=== PATIENT | female | born 1975 | race Caucasian/White ===

== ENCOUNTER 2023-05-13 20:20 | Outpatient (REF) | payer BC, SELFPAY ==
[2023-05-19 12:11] LABS: Age Gdln ACOG Testing Note (.); HPV Aptima Negative (Negative); IGP, Aptima HPV, rfx 16/18,45 Note (.)
== END 2023-05-13 20:21 | disposition home or self-care (01) ==
LOC: LAB 20:20
PROVIDERS: Visit Provider Physician Assistant
DX: Z01.419 Encounter for gynecological examination (general) (routine) without abnormal findings (principal)
CPT/HCPCS: 87624; G0145

== ENCOUNTER 2024-01-07 07:29 | Outpatient (OUT) | payer BC, SELFPAY ==
--- OUTSIDE RECORDS SUMMARY | 2024-01-07 07:35 | XMS_ITS | CCD ---
Author Organization [facility] Care Team Providers Care Office Helper Name Role Phone DEEPTHI ANDRADE Admitting Unavailable DEEPTHI ANDRADE Attending Unavailable DEEPTHI ANDRADE Surgeon Unavailable KISHA, AGUSTÍN Primary Care Unavailable KISHA, AGUSTÍN Referring Unavailable ND Procedure Practitioner Unavailab monique GOODEN, DR HECTOR Baca Admitting Unavailable GIACOMO, DR HECTOR Baca Attending Unavailable AICHHOLZ, FIELD OPERATIONS COORDINATOR CONNIE Primary Care Unavailable GIACOMO, DR HECTOR Baca Consulting Unavailable KRISTINA ., DR MCCOLLUM Admitting Unavailable KRISTINA ., DR MCCOLLUM Attending Unavailable AICHHOLZ, FIELD OPERATIONS COORDINATOR CONNIE Primary Care Unavailable KRISTINA ., DR MCCOLLUM Consulting Unavailable REQUEST, DR HERNANDEZ LISTED Admitting Unavaila ble REQUEST, DR HERNANDEZ LISTED Attending Unavaila ble KISHA, AGUSTÍN R Primary Care Unavailable KRISTINA ., DR MCCOLLUM Admitting Unavailable KRISTINA ., DR MCCOLLUM Attending Unavailable AICHHOLZ, FIELD OPERATIONS COORDINATOR CONNIE Primary Care Unavailable KRISTINA ., DR MCCOLLUM Consulting Unavailable AGUBOSIM, TANIKA Consulting Unavailable SARAH BOOTH Consulting Unavailable BOOTH (ERROR), SARAH Consulting Unavailable KRISTINA ., DR MCCOLLUM Admitting Unavailable KRISTINA ., DR MCCOLLUM Attending Unavailable AICHHOLZ, FIELD OPERATIONS COORDINATOR CONNIE Primary Care Unavailable WEST, DR HECTOR Baca Consulting Unavailable AICHHOLZ, FIELD OPERATIONS COORDINATOR CONNIE Admitting Unavailable AICHHOLZ, FIELD OPERATIONS COORDINATOR CONNIE Attending Unavailable AICHHOLZ, FIELD OPERATIONS COORDINATOR CONNIE Primary Care Unavailable AICHHOLZ, FIELD OPERATIONS COORDINATOR CONNIE Consulting Unavailable SHEREEN, DR BELLO Carson Consulting Unavailable AICHHOLZ, FIELD OPERATIONS COORDINATOR CONNIE Admitting Unavailable AICHHOLZ, FIELD OPERATIONS COORDINATOR CONNIE Attending Unavailable KISHA, AGUSTÍN R Primary Care Unavailable AICHHOLZ, FIELD OPERATIONS COORDINATOR CONNIE Consulting Unavailable Sravanthi Ji Unavailable [phone] SRAVANTHI COLE Attending Unavailable GARTH LEÓN Attending Unavailable SRAVANTHI COLE Attending Unavailable Allergies Allergy Classification Reported Allergen(s) Allergy Type Date of Onset Reaction(s) Facility (1 source) Prochlorperazine Drug Allergy [facility] Repository (3 sources) Prochlorperazine Drug Allergy 3 Rash [facility] Medications Current Medications Medication Drug Class(es) Dates Sig (Normalized) Sig (Original) fluocinonide 0.5 mg/ml topical solution (2 sources) Corticosteroid Start: 07-31-2023 fluocinonide (Lidex) 0.05 % external solution Indications: Rash and other nonspecific skin eruption Apply to affected areas on the scalp, up to twice a day when flared, 30 day supply 20 mL 11 07/31/2023 Active levonorgestrel 0.509971 mg/hr intrauterine system (3 sources) Progestin, Progestin-containin g Intrauterine Device Levonorgestrel (Mirena, 52 MG,) 20 MCG/DAY intrauterine device by Intrauterine route. 0 Active levothyroxine sodium 0.075 mg oral tablet (4 sources) l-Thyroxine Start: 08-04-2023 End: 11-02-2023 take 1 tablet by mouth in the morning levothyroxine (Synthroid, Levoxyl) 75 MCG tablet Indications: Hypothyroidism (CMS/HCC) Take 1 tablet (75 mcg) by mouth in the morning. 90 tablet 0 08/04/2023 11/02/2023 Active take 1 tablet by mouth in the mo rning levothyroxine (Synthroid, Levoxyl) 25 MCG tablet Take 1 tablet by mouth in the morning. 0 Active traZODone hydrochloride 50 mg oral tablet (3 sources) Serotonin Reuptake Inhibitor Start: 05-30-2023 End: 08-28-2023 take 1 tablet by mouth at bedtime traZODone (Desyrel) 50 MG tablet Indications: Insomnia, unspecified , Insomnia Take 1 tablet (50 mg) by mouth at bedtime 90 tablet 1 05/30/2023 08/28/2023 Active Problems Active Problems Problem Classification Problem Date Documented Da te Episodic/Chronic Neoplasms of unspecified nature or uncertain behavior (1 source) Neoplastic disease; Translations: [Neoplasm of unspecified behavior of bone, soft tissue, and skin] 07-31-2023 Episodic Other and unspecified benign neoplasm (1 source) Melanocytic nevus of trunk; Translations: [Melanocytic nevi of trunk] 07-31-2023 Episodic Other and unspecified benign neoplasm (1 source) Skin lesion; Translations: [Hemangioma of skin and subcutaneous tissue] 07-31-2023 Episodic Other skin disorders (1 source) Eruption; Translations: [Rash and other nonspecific skin eruption] 07-31-2023 Episodic Other skin disorders (1 source) Lentiginosis; Translations: [Other melanin hyperpigmentation] 07-31-2023 Episodic Other skin disorders (1 source) Inflamed seborrheic keratosis; Translations: [Inflamed seborrheic keratosis] 07-31-2023 Episodic Thyroid disorders (3 sources) Hypothyroidism; Translations: [Hypothyroidism, unspecified] Onset: 08-04-2023 08-04-2023 Chronic Unclassified (1 source) CONTACT W/AND (SUSP) EXPOS COVID-19; Translations: [CONTACT W/AND (SUSP) EXPOS COVID-19] Onset: 01-15-2022 Past or Other Problems Problem Classification Problem Date Documented Date Episodic/Chronic Abdominal pain (5 sources) Pelvic and perineal pain; Translations: [PELVIC AND PERINEAL PAIN] Onset: 12-11-2021 Episodic Contraceptive and procreative management (4 sources) Encounter for removal and reinsertion of intrauterine contraceptive device; Translations: [ENC REMOVAL REINSERT IU CONTRACEPT] Onset: 01-18-2022 Episodic Other screening for suspected conditions (not mental disorders or infectious disease) (4 sources) Encounter for screening mammogram for malignant neoplasm of breast; Translations: [ENC SCR MAMMO MALIG NEOPLASM BREAST] Onset: 12-13-2021 Episodic Ovarian cyst (1 source) Unspecified ovarian cyst, unspecified side; Translations: [UNSPECIFIED OVARIAN CYST UNSP SIDE] Onset: 01-24-2022 Episodic Residual codes; unclassified (1 source) Insomnia, unspecified; Translations: [INSOMNIA UNSPECIFIED] Onset: 01-24-2022 Episodic Residual codes; unclassified (1 source) Family history of malignant neoplasm of breast; Translations: [FAMILY HX MALIG NEOPLASM OF BREAST] Onset: 12-18-2021 Episodic Residual codes; unclassified (1 source) Family history of malignant neoplasm of other organs or systems; Translations: [FAM HX MALIG NEOPLASM OTH ORGN/SYS] Onset: 12-18-2021 Episodic Results Test Name Value Interpretation Reference Range Facility Cryotherapy, skin lesionon 0 07-31-2023 [facility] Lesion biopsyon 07-31-2023 Type of biopsy: tangential Informed consent: discussed and consent obtained Informed consent comment: The risks and benefits of the biopsy were discussed. Risks include but are not limited to bleeding, infection, scarring, pain, and nerve damage. An opportunity to ask questions prior to the procedure was permitted and all questions were answered. Patient was prepped and draped in usual sterile fashion: area cleansed with alcohol. Anesthesia: the lesion was anesthetized in a standard fashion Anesthetic: 1% lidocaine w/ epinephrine 1-100,000 buffered w/ 8.4% NaHCO3 Instrument used: DermaBlade Hemostasis achieved with: electrodesiccation Outcome: patient tolerated procedure well Outcome comment: The specimen was placed in a prelabeled formalin container to be sent for pathology Post-procedure details: sterile dressing applied and wound care instructions given Post-procedure details comment: Emphasized need to contact clinic for any signs of infection, uncontrollable bleeding, or complications. Dressing type: bandage Additional details: Photo taken Amount of lidocaine used: 0.5 cc [facility] CBC AUTO DIFFon 01-18-2022 BASO # 0.0 103/ul Normal 0.0-0.1 [facility] Comment on above: Performed By: #### C BC #### [facility] [address] [place] [address] Dr. Roney Disla Basophils/100 WBC (Bld) 0.4 % Normal 0.2-2.0 [facility] Comment on above: Performed By: #### C BC #### [facility] [address] [place] [address] Dr. Roney Disla EO # 0.1 103/ul Normal 0.0-0.7 [facility] Comment on above: Performed By: #### C BC #### [facility] [address] [place] [address] Dr. Roney Disla Eosinophils/100 WBC (Bld) 0.8 % Critically low 0.9-7.0 [facility] Comment on above: Performed By: #### C BC #### [facility] [address] [place] [address] Dr. Roney Disla Erythrocyte distribution width (RBC) [Ratio] 12.5 % Normal 11.0-15.0 [facility] Comment on above: Performed By: #### C BC #### [facility] [address] [place] [address] Dr. Roney Disla Hematocrit (Bld) [Volume fraction] 38.9 % Normal 36.0-48.0 [facility] Comment on above: Performed By: #### C BC #### [facility] [address] [place] [address] Dr. Roney Disla Hemoglobin (Bld) [Mass/Vol] 13.1 g/dL Normal 12.0-16.0 [facility] Comment on above: Performed By: #### C BC #### [facility] [address] [place] [address] Dr. Roney Disla IG # 0.02 10e3/ul Normal 0.00-0.03 [facility] Comment on above: Performed By: #### C BC #### [facility] [address] [place] [address] Dr. Roney Disla IG % 0.2 % Normal 0.0-0.5 [facility] Comment on above: Performed By: #### C BC #### [facility] [address] [place] [address] Dr. Roney Disla LYMPH # 2.3 103/ul Normal 1.2-3.8 [facility] Comment on above: Performed By: #### C BC #### [facility] [address] [place] [address] Dr. Roney Disla Lymphocytes/100 WBC (Bld) 27.3 % Normal 20.5-60.0 [facility] Comment on above: Performed By: #### C BC #### [facility] [address] [place] [address] Dr. Roney Disla MANUAL DIFF REQ NO Normal [facility] Comment on above: Performed By: #### C BC #### [facility] [address] [place], [place] [id number] Dr. Roney Disla MCH (RBC) [Entitic mass] 29.5 pg Normal 26.7-34.0 [facility] Comment on above: Performed By: #### C BC #### [facility] [address] [place] [address] Dr. Roney Disla MCHC (RBC) [Mass/Vol] 33.7 g/dL Normal 29.9-35.2 [facility] Comment on above: Performed By: #### C BC #### [facility] [address] [place] [address] Dr. Roney Disla MCV (RBC) [Entitic vol] 87.6 fL Normal 81.0-99.0 [facility] Comment on above: Performed By: #### C BC #### [facility] [address] [place] [address] Dr. Roney Disla MONO # 0.6 103/ul Normal 0.3-0.8 [facility] Comment on above: Performed By: #### C BC #### [facility] [address] [place] [address] Dr. Roney Disla Monocytes/100 WBC (Bld) 6.7 % Normal 1.7-12.0 [facility] Comment on above: Performed By: #### C BC #### [facility] [address] [place] [address] Dr. Roney Disla NEUT # 5.3 103/ul Normal 1.4-6.5 [facility] Comment on above: Performed By: #### C BC #### [facility] [address] [place] [address] Dr. Roney Disla Neutrophils/100 WBC (Bld) 64.6 % Normal 43.0-75.0 [facility] Comment on above: Performed By: #### C BC #### [facility] [address] [place] [address] Dr. Roney Disla Platelet mean volume (Bld) [Entitic vol] 9.5 fL Normal 9.5-13.5 [facility] Comment on above: Performed By: #### C BC #### [facility] [address] [address] [address] Roney Disla PLT 306 103/ul Normal 150-450 [facility] Comment on above: Performed By: #### C BC #### [facility] [address] [address] [address] Roney Disla RBC 4.44 106/ul Normal 4.20-5.40 [facility] Comment on above: Performed By: #### C BC #### [facility] [address] [address] [address] Roney Disla WBC 8.2 103/ul Normal 4.0-11.0 [facility] Comment on above: Performed By: #### C BC #### [facility] [address] [place] [address] Dr. Roney Disla PREG HCG QUALon 01-18-2022 , QUAL Negative Normal NEGATIVE [facility] Comment on above: Performed By: #### P REG #### [facility] [address] [place] [address] Dr. Roney Disla Covid-19 PCR (CVDTB)on 12-22 SARS-CoV-2 (COVID-19) RNA CHAY+probe Ql (Unsp spec) Not detected Normal NOT DETECTED [facility] Comment on above: Result Comment: This test is not yet approved or cleared by the [place] FDA. When there are no FDA-approved or cleared tests available, and other criteria are met, FDA can make tests available under an emergency access mechanism called an Emergency Use Authorization (EUA). The EUA for this test is supported by the [place] of Health and Human Service's (HHS's) declaration that circumstances exist to justify the emergency use of in vitro diagnostics for the detection and/or diagnosis of the virus that causes COVID-19. This EUA will remain in effect (meaning this test can be used) for the duration of the COVID-19 declaration justifying emergency of IVDs, unless it is terminated or revoked by FDA (after which the test may no longer be used). When diagnostic testing is negative, the possibility of a false negative should be considered in the context of a patient's recent exposures and the presence of clinical signs and symptoms consistent with SARS-CoV-2. Performed By: #### C VDTBH #### [facility] [address] [address] [address] Roney Disla MG MAMM SCREEN 3D JORDAN CADon 12-13-2021 MG MAMM SCREEN 3D JORDAN CAD Patient: ROSA ROBB Exam Date: 12/13/2021 : 1975 Gender:F Ordering : MACKENZIE CONNIE ARCEO [facility] Admission #: [id number] Family : Order #: [id number] CLICK HERE TO VIEW EXAM RADIOLOGY REPORT PROCEDURE: MAMMOGRAM SCREENING 3D BILATERAL CAD COMPARISON: MG MAMM SCREEN JORDAN W CAD, 05/28/2018. MG MAMM SCREEN JORDAN W CAD, 05/20/2017. MG MAMM JORDAN SCRN W CAD DIG, 02/24/2015. MG MAMM SCREEN JORDAN W CAD, 05/17/2019. INDICATIONS: Screening for malignant neoplasm of breast Calculator Name NCI Breast Cancer Risk Assessment Tool 5 Year Breast Cancer Risk 1.20% Lifetime Breast Cancer Risk 12.80% Personal Breast Cancer No Personal Ovarian Cancer No Treatments None Family Cancers Aunt-maternal with breast cancer at age 50; Mother with skin cancer at age 65. LOCATION: [facility] BREAST COMPOSITION: Extremely dense, which lowers the sensitivity of mammography. FINDINGS: DIAGNOSTIC CATEGORY 1--NEGATIVE. RIGHT BREAST: No significant suspicious finding. No significant change has occurred. LEFT BREAST: No significant suspicious finding. No significant change has occurred. RECOMMENDATIONS: ROUTINE MAMMOGRAM AND CLINICAL EVALUATION IN 12 MONTHS. PLEASE NOTE: A NORMAL MAMMOGRAM DOES NOT EXCLUDE THE POSSIBILITY OF BREAST CANCER. A CLINICALLY SUSPICIOUS PALPABLE LUMP SHOULD BE BIOPSIED. Dictated by: Bello Roach M.D. on 12/14/2021 at 13:35 Approved by: Bello Roach M.D. on 12/14/2021 at 13:54 Normal [facility] US PELVIS AND TRANSVAGon US PELVIS AND TRANSVAG EXAMINATION: US PELVIS AND TRANSVAG HISTORY: Pelvic and perineal pain COMPARISON: No relevant comparison available. FINDINGS: Transabdominal and transvaginal images The uterus is prominent in size measuring 12.6 x 7.1 x 4.5 cm. No focal myometrial mass. Anteverted. Endometrium measures 6.6 mm. Linear hyperechogenicity within the endometrial cavity with acoustic shadowing consistent with a normally positioned IUD. Fluid is identified within the endocervical canal measuring up to 3.6 mm. The right ovary measures 3.1 x 2.2 x 1.3 cm. Normal color flow. The left ovary measures 3.0 x 2.0 x 2.0 cm. Normal color flow No free fluid. IMPRESSION: Normal position of IUD Electronically authenticated by: HECTOR GOODEN Date: 2021-12-11 16:27 Normal [facility] CBC AUTO DIFFon 11-02-2021 BASO # 0.0 103/ul Normal 0.0-0.1 [facility] Comment on above: Performed By: #### C BC #### [facility] [address] [place] [address] Dr. Roney Disla Basophils/100 WBC (Bld) 0.4 % Normal 0.2-2.0 [facility] Comment on above: Performed By: #### C BC #### [facility] [address] [place] [address] Dr. Roney Dsila EO # 0.1 103/ul Normal 0.0-0.7 [facility] Comment on above: Performed By: #### C BC #### [facility] [address] [place] [address] Dr. Roney Disla Eosinophils/100 WBC (Bld) 1.5 % Normal 0.9-7.0 [facility] Comment on above: Performed By: #### C BC #### [facility] [address] [place] [address] Dr. Roney Disla Erythrocyte distribution width (RBC) [Ratio] 12.4 % Normal 11.0-15.0 [facility] Comment on above: Performed By: #### C BC #### [facility] [address] [place] [address] Dr. Roney Disla Hematocrit (Bld) [Volume fraction] 39.3 % Normal 36.0-48.0 [facility] Comment on above: Performed By: #### C BC #### [facility] [address] [place] [address] Dr. Roney Disla Hemoglobin (Bld) [Mass/Vol] 13.0 g/dL Normal 12.0-16.0 [facility] Comment on above: Performed By: #### C BC #### [facility] [address] [place] [address] Dr. Roney Disla IG # 0.02 10e3/ul Normal 0.00-0.03 [facility] Comment on above: Performed By: #### C BC #### [facility] [address] [place] [address] Dr. Roney Disla IG % 0.2 % Normal 0.0-0.5 [facility] Comment on above: Performed By: #### C BC #### [facility] [address] [place] [address] Dr. Roney Disla LYMPH # 2.5 103/ul Normal 1.2-3.8 [facility] Comment on above: Performed By: #### C BC #### [facility] [address] [place] [address] Dr. Roney Disla Lymphocytes/100 WBC (Bld) 30.9 % Normal 20.5-60.0 [facility] Comment on above: Performed By: #### C BC #### [facility] [address] [place] [address] Dr. Roney Disla MANUAL DIFF REQ NO Normal [facility] Comment on above: Performed By: #### C BC #### [facility] [address] [place] [address] Dr. Roney Disla MCH (RBC) [Entitic mass] 29.1 pg Normal 26.7-34.0 [facility] Comment on above: Performed By: #### C BC #### [facility] [address] [place] [address] Dr. Roney Disla MCHC (RBC) [Mass/Vol] 33.1 g/dL Normal 29.9-35.2 [facility] Comment on above: Performed By: #### C BC #### [facility] [address] [place] [address] Dr. Roney Disla MCV (RBC) [Entitic vol] 88.1 fL Normal 81.0-99.0 [facility] Comment on above: Performed By: #### C BC #### [facility] [address] [address] [address] Roney Disla MONO # 0.6 103/ul Normal 0.3-0.8 [facility] Comment on above: Performed By: #### C BC #### [facility] [address] [address] [address] Roney Disla Monocytes/100 WBC (Bld) 7.0 % Normal 1.7-12.0 [facility] Comment on above: Performed By: #### C BC #### [facility] [address] [address] [address] Roney Disla NEUT # 4.8 103/ul Normal 1.4-6.5 [facility] Comment on above: Performed By: #### C BC #### [facility] [address] [place] [address] Dr. Roney Disla Neutrophils/100 WBC (Bld) 60.0 % Normal 43.0-75.0 [facility] Comment on above: Performed By: #### C BC #### [facility] [address] [place] [address] Dr. Roney Disla Platelet mean volume (Bld) [Entitic vol] 9.8 fL Normal 9.5-13.5 [facility] Comment on above: Performed By: #### C BC #### [facility] [address] [place] [address] Dr. Roney Disla PLT 299 103/ul Normal 150-450 [facility] Comment on above: Performed By: #### C BC #### [facility] [address] [place] [address] Dr. Roney Disla RBC 4.46 106/ul Normal 4.20-5.40 [facility] Comment on above: Performed By: #### C BC #### [facility] [address] [place] [address] Dr. Roney Disla WBC 8.1 103/ul Normal 4.0-11.0 [facility] Comment on above: Performed By: #### C BC #### [facility] [address] [address] [address] Roney Disla GLYCOHEMOGLOBIN A1Con 2021 ADA RECOMMENDATION SEE BELOW Normal [facility] Comment on above: Result Comment: ADA RECOMMENDED LIMIT 4.0 - 6.0 ADA THERAPEUTIC TARGET < 7.0 ACTION SUGGESTED > 7.0 Performed By: #### A 1C ####[facility] [id number] [address]Dr[address] Roney Disla Glucose [Mass/Vol] 108 mg/dL Normal [facility] Comment on above: Performed By: #### A 1C ####[facility] [id number] [id number] Roney Disla HbA1c (Bld) [Mass fraction] 5.4 % Normal 4.5-6.2 [facility] Comment on above: Performed By: #### A 1C ####[facility] [id number] [address]Dr[address] Roney Disla LIPID PROFILEon 11-02-2021 CHOL-HDL RATIO NORM SEE BELOW Normal [facility] Comment on above: Result Comment: 3.3 - 4.4 LOW RISK 4.4 - 7.1 AVERAGE RISK 7.1 - 11.0 MODERATE RISK >11.0 HIGH RISK Performed By: #### T SH, CMP, LIPID #### [facility] [address] [address] [address] Roney Disla Cholesterol [Mass/Vol] 175 mg/dL Normal <=200 [facility] Comment on above: Performed By: #### T SH, CMP, LIPID #### [facility] [address] [address] [address] Roney Disla Cholesterol in HDL [Mass/Vol] 59 mg/dL Normal 40-60 [facility] Comment on above: Performed By: #### T SH, CMP, LIPID #### [facility] [address] [address] [address] Roney Disla Cholesterol in LDL [Mass/Vol] 104.8 mg/dL Normal [facility] Comment on above: Performed By: #### T SH, CMP, LIPID #### [facility] [address] [address] [address] Roney Disla Cholesterol.total/Ch olesterol in HDL [Mass ratio] 3.0 {ratio} Normal [facility] Comment on above: Performed By: #### T JEFFERSON CMP, LIPID #### [facility] [address] [address] [address] Roney Disla HDL NORMAL > or = 60 mg/dl - LO W CARDIOVASCULAR RISK <40 mg/dl - HIGH CARDIOVASCULAR RISK Normal [facility] Comment on above: Performed By: #### T JEFFERSON, CMP, LIPID #### [facility] [address] [place] [address] Dr. Roney Disla LDL CALC NORMAL SEE BELOW Normal [facility] Comment on above: Result Comment: <100 mg/dl OPTIMAL 100 - 129 mg/dl NEAR OR ABOVE OPTIMAL 130 - 159 mg/dl BORDERLINE HIGH 160 - 189 mg/dl HIGH >190 mg/dl VERY HIGH Performed By: #### T JEFFERSON CMP, LIPID #### [facility] [address] [address] [address] Roney Disla Triglyceride [Mass/Vol] 56 mg/dL Normal <=150 [facility] Comment on above: Performed By: #### T JEFFERSON CMP, LIPID #### [facility] [address] [place] [address] Dr. Roney Disla VLDL CALC 11.2 mg/dL Normal [facility] Comment on above: Performed By: #### T JEFFERSON CMP, LIPID #### [facility] [address] [place] [address] Dr. Roney Disla PROF 14(COMP METB)on 022 Albumin [Mass/Vol] 4.1 g/dL Normal 3.4-5.0 [facility] Comment on above: Performed By: #### T JEFFERSON CMP, LIPID #### [facility] [address] [place] [address] Dr. Roney Disla Albumin/Globulin [Mass ratio] 1.1 {ratio} Normal [facility] Comment on above: Performed By: #### T JEFFERSON CMP, LIPID #### [facility] [address] [address] [address] Roney Disla ALP [Catalytic activity/Vol] 62 U/L Normal 46-116 [facility] Comment on above: Performed By: #### T SH, CMP, LIPID #### [facility] [address] [place] [address] Dr. Roney Disla ALT [Catalytic activity/Vol] 28 U/L Normal 14-59 [facility] Comment on above: Performed By: #### T SH, CMP, LIPID #### [facility] [address] [place] [address] Dr. Roney Disla Anion gap [Moles/Vol] 9.4 mmol/L Normal [facility] Comment on above: Performed By: #### T SH, CMP, LIPID #### [facility] [address] [place] [address] Dr. Roney Disla AST [Catalytic activity/Vol] 16 U/L Normal 15-37 [facility] Comment on above: Performed By: #### T SH, CMP, LIPID #### [facility] [address] [place] [address] Dr. Roney Disla Bilirubin [Mass/Vol] 0.3 mg/dL Normal 0.2-1.0 [facility] Comment on above: Performed By: #### T SH, CMP, LIPID #### [facility] [address] [place] [address] Dr. Roney Disla Calcium [Mass/Vol] 9.7 mg/dL Normal 8.5-10.1 [facility] Comment on above: Performed By: #### T SH, CMP, LIPID #### [facility] [address] [place] [address] Dr. Roney Disla Chloride [Moles/Vol] 102 mmol/L Normal 98-107 [facility] Comment on above: Performed By: #### T SH, CMP, LIPID #### [facility] [address] [place] [address] Dr. Roney Disla CO2 [Moles/Vol] 31.0 mmol/L Normal 21.0-32.0 [facility] Comment on above: Performed By: #### T SH, CMP, LIPID #### [facility] [address] [address] [address] Roney Disla Creatinine [Mass/Vol] 0.64 mg/dL Normal 0.55-1.02 [facility] Comment on above: Performed By: #### T SH, CMP, LIPID #### [facility] [address] [address] [address] Roney Disla EGFR-AF SLOVENIAN >60 Normal >=60 [facility] Comment on above: Performed By: #### T SH, CMP, LIPID #### [facility] [address] [address] [address] Roney Disla EGFR-NON AF SLOVENIAN >60 Normal >=60 [facility] Comment on above: Performed By: #### T SH, CMP, LIPID #### [facility] [address] [address] [address] Roney Disla Globulin (S) [Mass/Vol] 3.6 g/dL Normal [facility] Comment on above: Performed By: #### T SH, CMP, LIPID #### [facility] [address] [address] [address] Roney Disla Glucose [Mass/Vol] 86 mg/dL Normal 74-106 [facility] Comment on above: Performed By: #### T SH, CMP, LIPID #### [facility] [address] [address] [address] Roney Disla Potassium [Moles/Vol] 4.4 mmol/L Normal 3.5-5.1 [facility] Comment on above: Performed By: #### T SH, CMP, LIPID #### [facility] [address] [address] [address] Roney Disla Protein [Mass/Vol] 7.7 g/dL Normal 6.4-8.2 [facility] Comment on above: Performed By: #### T SH, CMP, LIPID #### [facility] [address] [address] [address] Roney Disla Sodium [Moles/Vol] 138 mmol/L Normal 136-145 [facility] Comment on above: Performed By: #### T SH, CMP, LIPID #### [facility] [address] [address] [address] Roney Disla Urea nitrogen [Mass/Vol] 18.0 mg/dL Normal 7.0-18.0 [facility] Comment on above: Performed By: #### T SH, CMP, LIPID #### [facility] [address] [address] [address] Roney Disla Urea nitrogen/Creatinine [Mass ratio] 28.1 mg/mg Normal [facility] Comment on above: Performed By: #### T SH, CMP, LIPID #### [facility] [address] [address] [address] Roney Disla TSHon 11-02-2021 TSH 1.335 uIU/mL Normal 0.358-3.740 [facility] Comment on above: Performed By: #### T SH, CMP, LIPID #### [facility] [address] [place] [address] Dr. Roney Disla TSH RANGE SEE BELOW Normal [facility] Comment on above: Result Comment: <0.3 4 UIU/ml HYPERTHYROID 0.34-5.60 UIU/ml EUTHYROID >5.60 UIU/ml HYPOTHYROID Performed By: #### T SH, CMP, LIPID #### [facility] [address] [address] [address] Roney Disla Operative Reporton Operative Report MR#: [id number] [facility] Pt. Name: Rosa Robb Room #: 0C Discharge Date: Birthdate: 1975 OPERATIVE REPORT DATE OF SURGERY: 12/19/2020 SURGEON: Deepthi Andrade MD PREOPERATIVE DIAGNOSIS: Chronic diarrhea. POSTOPERATIVE DIAGNOSIS: Normal colonoscopy with small rectal polyp. PROCEDURE: Diagnostic colonoscopy with multiple biopsies taken from the colon with the cold biopsy forceps. ESTIMATED BLOOD LOSS: About 5 mL. COMPLICATIONS: None. INDICATION FOR PROCEDURE: This is a 45-year-old female who presented to pr with chronic diarrhea. Decision was made to do a colonoscopy. PROCEDURE IN DETAIL: Preoperatively, consent was obtained, the patient brought to the operating room, placed in left lateral decubitus position under MAC anesthesia. Direct visualization of anal canal showed to have no masses or lesions. Rectocele was present. No masses or lesions were seen on digital rectal exam. The patient had no issues with entrance of the scope. The scope was reached to the cecum without any difficulty. On removal of the scope, biopsies were taken from the ascending, transverse, descending, and rectum and sent separately. Also, a small flat villous appearing polyp was found in the distal rectum and that was also biopsied and sent in a different specimen jar. The patient tolerated the procedure well and was taken to postanesthesia care unit in stable condition. Electronically Signed by: Deepthi Andrade MD 12/21/2020 02:07 P Deepthi Andrade MD Date Dict: 12/19/2020/09:13 A/Deepthi Andrade MD Date Trans: 12/19/2020 09:59 A/israel [id number] Normal [facility] POC URINE PREGNANCYon 2020 Beta HCG ( test) Ql (U) Negative Normal NEGATIVE [facility] Comment on above: Performed By: #### [id number] #### [facility] [address] *SARS-CoV-2 COVID-19on 12-16 SARS-CoV-2 (COVID-19) RNA CHAY+probe Ql (Unsp spec) Not detected Normal Not Detected [facility] Comment on above: Order Comment: The A ptima SARS-CoV-2 assay is a nucleic acid amplification test intended for the qualitative detection of RNA from SARS-CoV-2 isolated and purified from nasopharyngeal (FLORAL MERCHANDISER),oropharyngeal (OP), nasal swab, sputum, and bronchoalveolar lavage (BAL) specimens from patients with signs and symptoms of infection who are suspected of COVID-19. Results are for the identification of SARS-CoV-2 RNA. The SARS-CoV-2 RNA is generally detectable during the acute phase of infection. The Aptima SARS-CoV-2 Assay on the [place] [employer] system is intended for use by laboratory personnel specifically instructed and trained in the operation of the [place] [employer] system. The Aptima SARS-CoV-2 assay is only for use under the Food and Drug Administration Emergency Use Authorization. Testing is limited to laboratories certified under the Clinical Laboratory Improvement Amendments of 1988 (CLIA), 42 U.S.C. ???263a, to perform high complexity tests. Not Detected: Not detected does not preclude SARS-CoV-2 infection and should not be used as the sole basis for patient management decisions. Not detected results must be combined with clinical observations, patient history, and epidemiological information. Performed By: #### [id number] #### [facility] [address] Encounters Encounter Date Encounter Type Care Provider Facility Start: 09-11-2023 End: 09-11-2023 ambulatory SRAVANTHI A FELTER Not Available Start: 08-04-2023 Refill Connie Arceo FLORAL MERCHANDISER Work Phone: [facility] Comment on above: Hypothyroidism, unsp ecified (CMS/HCC); Hypothyroidism (CMS/HCC) Start: 07-31-2023 Bamboo flowsheet Sravanthi A Fel ter WELL TESTER-FIELD OPERATIONS COORDINATOR Work Phone: [facility] Start: 07-31-2023 Bamboo flowsheet Sravanthi A Fel ter WELL TESTER-FIELD OPERATIONS COORDINATOR Work Phone: [facility] Start: 07-31-2023 End: 07-31-2023 ambulatory SRAVANTHI A FELTER Not Available Start: 07-31-2023 End: 07-31-2023 Office outpatient visit 25 minutes Sravanthi A Felter WELL TE[employer]-FIELD OPERATIONS COORDINATOR Work Phone: [facility] Comment on above: Melanocytic nevus of trunk (Primary Dx); Rash and other nonspecific skin eruption; Lentigines; Angioma of skin; Neoplasm of unspecified behavior of bone, soft tissue, and skin; Seborrheic keratosis, inflamed; History of nevus excision Start: 05-13-2023 End: 05-13-2023 ambulatory GARTH LEÓN Not Available Start: 05-15-2022 End: 08-24-[address] HECTOR GOODEN Facility:[facility] Start: 01-18-2022 End: 01-18-[address] CHUN GUO . Facility:[facility] Start: 01-15-2022 Encounter for other preprocedural examination DR CHUN GUO . [facility] Start: 01-15-2022 Encounter for preprocedural cardiovascular examination DR CHUN GUO . [facility] Start: 01-15-2022 Encounter for preprocedural laboratory examination DR CHUN GUO . [facility] Start: 01-11-2022 End: 01-12-[address] CHUN GUO . Facility:[facility] Start: 01-11-2022 End: 01-12-2022 Encounter for preprocedural laboratory examination DR CHUN GUO . Facility:[facility] Start: 12-13-2021 End: 12-14-2021 ambulatory MACKENZIE ARCEO Facility:[facility] Start: 12-11-2021 End: 12-12-[address] CHUN GUO . Facility:[facility] Start: 11-07-2021 Encounter for genera l adult medical examination without abnormal findings MACKENZIE CONNIE NITISH [facility] Start: 11-02-2021 End: 11-03-2021 ambulatory MACKENZIE VELASQUEZ CHERELLEPepitoDENISEWero Facility:[facility] Start: 11-02-2021 End: 11-03-2021 Encounter for general adult medical examination without abnormal findings MACKENZIE VELASQUEZ CHERELLEPepitoDENISEWero Facility:[facility] Start: 10-25-2021 End: 10-26-2021 ambulatory NONE LISTED REQUEST Facility:[facility] Start: 12-19-2020 End: 12-20-2020 ambulatory DEEPTHI ANDRADE Facility:[facility] Procedures Date Procedure Procedure Detail Performing Clinician Start: 07-31-2023 CRYOTHERAPY SKIN LESION Sravanthi Cole WELL [employer] OPERATIONS COORDINATOR Work Phone: Start: 07-31-2023 SKIN / NAIL BIOPSY Kathleen leonardo Cole WELL TE[employer]FIELD OPERATIONS COORDINATOR Work Phone: Start: 12-19-2020 ANES LWR INTST NDSC NOS DEEPTHI ANDRADE Start: 12-19-2020 Colonoscopy w/biopsy single/multiple DEEPTHI ANDRADE H/O: surgery History of nevus excision Sravanthi Cole WELL TE[employer]FIELD OPERATIONS COORDINATOR Work Phone: Plan of Treatment Date Care Activity Detail Author Start: 08-02-2024 End: 08-02-2024 Patient encounter procedure 08/02/2024 9:40 AM EST Office Visit [facility] [address] [place] [id number] Sravanthi Cole, WELL TESTER-FIELD OPERATIONS COORDINATOR [address] [place] [address] [facility] Start: 09-11-2023 End: 09-11-2023 Patient encounter procedure 09/11/2023 9:40 AM EDT Office Visit [facility] [address] [place] [address] Kelsey Sravanthi Gilman, WELL TESTER[employer]FIELD OPERATIONS COORDINATOR [address] [place] [address] [facility] Start: 07-31-2023 End: 07-31-2023 Patient encounter procedure 07/31/2023 9:05 AM EST Office Visit [facility] [address] [place] [address] Kelsey Sravanthi Gilman, WELL TE[employer]FIELD OPERATIONS COORDINATOR [address] [place] [address] Arrived [facility] Comment on above: Arrived Start: 02-21-2023 Influenza vaccination Influenza Vaccine (#1) [facility] Start: 2015 Screening for malignant neoplasm of breast Mammogram [facility] Start: 08-30-2005 Screening for malignant neoplasm of cervix [facility] Start: 08-30-1996 Screening for malignant neoplasm of cervix Pap Smear [facility] Start: 1975 Screening for malignant neoplasm of colon [facility] Dermatopathology exam Dermatopat hology exam Pathology and Cytology Timed Neoplasm of unspecified behavior of bone, soft tissue, and skin Release Upon Ordering for 1 Occurrences starting 07/31/2023 [facility] Work Phone: Comment on above: Release Upon Ordering for 1 Occurrences starting 07/31/2023 Immunizations Immunization Date Immunization Notes Care Provider Aaron julian 03-12-2013 influenza virus vacc ine, unspecified formulation Sravanthi Cole WELL TESTER-FIELD OPERATIONS COORDINATOR Work Phone: [facility] Payers Date Payer Category Payer Unknown BCBS BCBS xxxxxx [id number] 2022-Present [phone] [address] [place] [address] [id number] 2022 Unknown [id number] 2019 Unknown [id number] 1975 Unknown [id number] 1975 Unknown [id number] 1975 Unknown [id number] 1975 Unknown [id number] 1975 Unknown [id number] 1975 Unknown [id number] 1975 Unknown [id number] [id number] 1975 Unknown [id number] 1975 Unknown [id number] [id number] 1975 Unknown [id number] 1959 Self-pay [id number] Unknown [id number] Unknown [id number] Social History Date Type Detail Facility Start: 05-11-2023 End: 07-31-2023 Tobacco smoking status NHIS Never smoked tobacco [facility] Start: 05-11-2023 End: 07-31-2023 History of Social function [facility] Start: 05-11-2023 End: 07-31-2023 Tobacco use panel [facility] Start: 1975 Sex Assigned At Not on file [facility] Start: 05-12-2023 Gender identity Identifies as female gender (finding) [facility] Start: 07-31-2023 Tobacco use and exposure Smokeless t obacco non-user [facility] History of Present illness Narrative 07-31-2023 Sravanthi Cole, WELL TESTER-FIELD OPERATIONS COORDINATOR - 07/31/2023 9:05 AM EST Note Date & Type Note Facility 07-31-2023 History of Presen t illness Narrative Images from the original note were not included. Skin Check Location: Patient requests a full body skin examination Dermatologic history: history of atypical mole(s)(left forearm) Last visit: 09/24/2022 Established patient Lesion(s) Location: back Duration: months Quality: denies pain, denies itch, denies bleeding Modifying factors: rubs on clothing Associated symptoms: enlarged, rough, scaly Treatments: none All pertinent medical history, medications, and allergies were reviewed. General Exam: alert , oriented to person, place, and time , normal affect, well appearing Unaccompanied Areas not examined despite medical recommendation: Scalp, Examined Right leg Examined Head, Face Examined Left leg Examined Neck Examined Right foot Examined Chest Examined Left foot Examined Back Examined Buttocks Examined Abdomen Examined Digits,nails: Examined Right arm Examined Patient wearing nail [place], Denies dark streaks on toenails Left arm Examined Lymphatics: Not examined Hands Examined 1. Melanocytic nevus of trunk (6) Chest (Upper Torso, Anterior), Left Arm, Left Leg, Right Arm, Right Leg, Torso - Posterior (Back) Scattered benign appearing, regular brown to light brown melanocytic papules and macules with similar morphology Counseled regarding these benign growths. Rarely, a nevus can develop into malignant melanoma, so any changing nevi should be promptly re-evaluated. 2. Rash and other nonspecific skin eruption Scalp Well defined scaly Partial treated resolving rash, treated with diflucan. Favoring Seborrheic dermatitis vs atopic dermatitis. Start Flucinonide solutions apply topically to scalp BID as needed for flaring. Follow up in 6 week. Notify office if any worsening despite treatment. fluocinonide (Lidex) 0.05 % external solution - Scalp Apply to affected areas on the scalp, up to twice a day when flared, 30 day supply 3. Lentigines (6) Chest (Upper Torso, Anterior), Head - Anterior (Face), Left Arm, Left Leg, Right Arm, Right Leg Scattered mcmanus macules in sun-exposed areas. The patient was informed that lentigines are benign pigmented lesions that occur on sun-exposed and sun-damaged skin. No treatment is necessary. Recommended regular use of broad spectrum sunscreen SPF 30 or higher 4. Angioma of skin (2) Abdomen (Lower Torso, Anterior), Chest (Upper Torso, Anterior) Scattered suarez-red papule(s). The patient was informed that angiomas are benign growths on the the skin. No treatment is necessary. 5. Neoplasm of unspecified behavior of bone, soft tissue, and skin Left Thigh - Anterior Irregularly pigmented papule Lesion biopsy Type of biopsy: tangential Informed consent: discussed and consent obtained Informed consent comment: The risks and benefits of the biopsy were discussed. Risks include but are not limited to bleeding, infection, scarring, pain, and nerve damage. An opportunity to ask questions prior to the procedure was permitted and all questions were answered. Patient was prepped and draped in usual sterile fashion: area cleansed with alcohol. Anesthesia: the lesion was anesthetized in a standard fashion Anesthetic: 1% lidocaine w/ epinephrine 1-100,000 buffered w/ 8.4% NaHCO3 Instrument used: DermaBlade Hemostasis achieved with: electrodesiccation Outcome: patient tolerated procedure well Outcome comment: The specimen was placed in a prelabeled formalin container to be sent for pathology Post-procedure details: sterile dressing applied and wound care instructions given Post-procedure details comment: Emphasized need to contact clinic for any signs of infection, uncontrollable bleeding, or complications. Dressing type: bandage Additional details: Photo taken Amount of lidocaine used: 0.5 cc Specimen A - Dermatopathology exam Differential Diagnosis: Dysplastic nevus vs other Check Margins: No Size of lesion: 0.5 x 0.4 cm Shave biopsy today, see procedure note. Patient will be notified of results. Follow up pending biopsy results. 6. Seborrheic keratosis, inflamed (3) Left Upper Back, Right Lower Back, Right Upper Back Solomons and brown stuck on verrucous scaly papule with surrounding erythema The patient was informed that symptomatic seborrheic keratoses are benign growths that become inflamed, itchy, tender, traumatized, caught on clothing, or bleed. Symptomatic lesions can be treated with cryotherapy or curretage. Thicker lesions treated with cryotherapy may require more than one treatment. The patient was instructed to notify the office if abnormal redness or tenderness develops at the treatment site. Cryotherapy today, see procedure note. Diagnosis: Inflamed seborrheic keratosis Indication: Inflamed Consent: Verbal consent was obtained and risks were discussed, including, but not limited to risks of scarring, darker or scrap handler pigmentary changes, recurrence, incomplete removal and infection. Method: Liquid nitrogen was used to treat the lesion(s) with two 5-10 second freeze-thaw cycles Number of lesions treated: 3 Post-procedure instructions: Instructions were given orally and in writing. The office will be contacted if the lesion fails to resolve despite treatment, or if a side effect develops such as abnormal crusting, scabbing, redness or tenderness Cryotherapy, skin lesion - Left Upper Back, Right Lower Back, Right Upper Back 7. History of nevus excision Left Forearm - Anterior No evidence of recurrence in scar from atypical mole excision. Notify office for any recurrence at surgery site or for any new or changing lesions. Next Visit: pending biopsy results, 6 week follow up, 1 year skin exam documented in this encounter [facility] Clinical Note 01-18-2022 Note Date & Type Note Facility 01-18-2022 Note OPERATIVE NOTE OPERATION DATE: 01/18/2022 PROCEDURE: Removal of IUD as well as placement of Mirena IUD. PREOPERATIVE DIAGNOSIS: Retained IUD. POSTOPERATIVE DIAGNOSIS: Retained IUD. ANESTHESIA: General. SURGEON: Chun Guo D.O. REGULATORY SUBMISSIONS ASSOCIATE: None. BLOOD LOSS: 5 mL. URINE OUTPUT: Yellow and clear. FINDINGS: Removal of IUD. SPECIMEN: IUD. PROCEDURE: Patient taken back to the operating room where she was given general anesthesia, after being prepped and draped in the normal sterile fashion and being placed in the dorsolithotomy position. A weighted speculum was placed in the patient's vagina. The anterior tip of the cervix was identified. The patient then was gently dilated with Hegar dilators. The polyp forcep was then placed through the cervix, into the uterus where the IUD was grasped. The IUD was removed without difficulty. The patient sounded roughly to 9 cm. The Mirena device was adjusted as such and was placed through the cervix, into the uterus and deployed. The strings were then cut. Patient tolerated the procedure well. All instruments removed from the vagina. Sponge, lap and needle counts correct x2. Patient taken to recovery room in stable condition. [facility] Evaluation note Note Date & Type Note Facility Evaluation note Diagnosis Melanocytic nevus of trunk- Primary Benign neoplasm of skin of trunk, except scrotum Rash and other nonspecific skin eruption Lentigines Angioma of skin Neoplasm of unspecified behavior of bone, soft tissue, and skin Seborrheic keratosis, inflamed History of nevus excision documented in this encounter [facility] Evaluation note Note Date & Type Note Facility Evaluation note Diagnosis Hypothyroidism, unspecified (CMS/HCC) Hypothyroidism (CMS/HCC) Unspecified hypothyroidism documented in this encounter [facility] Summary Purpose Family History No Family History Records FoundNo Family History Records FoundNo Family History Records Found Advance Directives No Advanced Directives Records FoundNo Advanced Directives Records FoundNo Advanced Directives Records Found Additional Source Comments INFORMATION SOURCE (unrecogn ized section and content) DATE CREATED AUTHOR 12/22/2020 [facility] DATE CREATED AUTHOR AUTHOR'S ORGANIZ ATION 08/25/2022 [facility] DATE CREATED AUTHOR AUTHOR'S ORGANIZ ATION 09/12/2023 [facility] dical Specialists EPIC Care Teams (unrecognized sec tion and content) Office Helper Relationship Specialty Start Date End Date Sravanthi Cole APRN-MACKENZIE [address] [place] [address] PCP - [employer] 11/21/22 Office Helper Relationship Specialty Start Date End Date Sravanthi Cole, WELL TE[employer] OPERATIONS COORDINATOR [address] [place] [id number] PCP - [employer] 11/21/22 Office Helper Relationship Specialty Start Date End Date Sravanthi Cole, WELL TESTER-FIELD OPERATIONS COORDINATOR [address] [place] [address] PCP - [employer] 11/21/22 Reason for Visit (unrecogniz ed section and content) Reason Comments Skin Check Suspicious Skin Lesion Reason Comments Med Refill FOR RECORDS PERTAINING TO PATIENTS WHO ARE OR HAVE BEEN ENROLLED IN A CHEMICAL DEPENDENCY/SUBSTANCEABUSE PROGRAM, SOME INFORMATION MAY BE OMITTED. This clinical summary was aggregated from multiple sources. Caution should be exercised in using it in the provision of clinical care. This summary normalizes information from multiple sources, and as a consequence, information in this document may materially change the coding, format and clinical context of patient data. In addition, data may be omitted in some cases. CLINICAL DECISIONS SHOULD BE BASED ON THE PRIMARY CLINICAL RECORDS. [employer] provides no warranty or guarantee of the accuracy or completeness of information in this document.
--- NOTE | 2024-01-07 07:37 | MM_ITS ---
Patient Name: NATHANIEL GONZALES MR#: [id number] : 1975 Exam Date: 01/07/2024 Ordering Doctor: KRANTHI Brandt . RADIOLOGY REPORT PROCEDURE: MM TOMOSYNTHESIS SCREENING BI COMPARISON: MG MAMM SCREEN JORDAN W CAD, 05/17/2019. MG MAMM SCREEN JORDAN W CAD, 05/28/2018. MG MAMM JORDAN SCRN W CAD DIG, 02/24/2015. MG MAMM SCREEN 3D JORDAN CAD, 12/13/2021. INDICATIONS: Screening Calculator Name NCI Breast Cancer Risk Assessment Tool 5 Year Breast Cancer Risk 1.30% Lifetime Breast Cancer Risk 12.50% Personal Breast Cancer No Personal Ovarian Cancer No Treatments None Family Cancers Aunt-maternal with breast cancer at age 50; Mother with skin cancer at age 65. LOCATION: [facility] BREAST COMPOSITION: The breasts are extremely dense, which lowers the sensitivity of mammography. FINDINGS: DIAGNOSTIC CATEGORY 1--NEGATIVE. RIGHT BREAST: No significant suspicious finding. No significant change has occurred. LEFT BREAST: No significant suspicious finding. No significant change has occurred. RECOMMENDATIONS: ROUTINE MAMMOGRAM AND CLINICAL EVALUATION IN 12 MONTHS. PLEASE NOTE: A NORMAL MAMMOGRAM DOES NOT EXCLUDE THE POSSIBILITY OF BREAST CANCER. A CLINICALLY SUSPICIOUS PALPABLE LUMP SHOULD BE BIOPSIED. Dictated by: Bello Roach M.D. on 01/07/2024 at 09:07 Approved by: Bello Roach M.D. on 01/07/2024 at 09:10
== END 2024-01-07 07:30 | disposition home or self-care (01) ==
LOC: MAMMO 07:32
PROVIDERS: PCP Nurse Practitioner; Visit Provider Physician Assistant
DX: Z12.31 Encounter for screening mammogram for malignant neoplasm of breast (principal); Z80.3 Family history of malignant neoplasm of breast; Z80.8 Family history of malignant neoplasm of other organs or systems
CPT/HCPCS: 77063; 77067

== ENCOUNTER 2024-02-26 11:51 | Outpatient (OUT) | payer BC, SELFPAY ==
[2024-02-26 12:11] LABS: Basophils Absolute Auto 0.1 10^3/uL (0.0-0.1); Basophils Percent Auto 0.6 % (0.2-2.0); Eosinophils Absolute Auto 0.1 10^3/uL (0.0-0.7); Eosinophils Percent Auto 1.5 % (0.9-7.0); Hematocrit 38.6 % (36.0-48.0); Hemoglobin 12.9 g/dL (12.0-16.0); Immature Granulocytes Abs Auto 0.02 10^3/uL (0.00-0.03); Immature Granulocytes Pct Auto 0.3 % (0.0-0.5); Lymphocytes Absolute Auto 2.6 10^3/uL (1.2-3.8); Lymphocytes Percent Auto 32.8 % (20.5-60.0); Mean Corpuscular HGB Conc 33.4 g/dL (29.9-35.2); Mean Corpuscular Hemoglobin 29.9 pg (26.7-34.0); Mean Corpuscular Volume 89.4 fL (81.0-99.0); Mean Platelet Volume 9.4 fL (9.5-13.5); Monocytes Absolute Auto 0.6 10^3/uL (0.3-0.8); Neutrophils Absolute Auto 4.6 10^3/uL (1.4-6.5); Neutrophils Percent Auto 57.8 % (43.0-75.0); Platelet Count 335 10^3/uL (150-450); Red Blood Count 4.32 10^6/uL (4.20-5.40); Red Cell Distribution Width 12.5 % (11.0-15.0); White Blood Count 7.9 10^3/uL (4.0-11.0)
--- OUTSIDE RECORDS SUMMARY | 2024-02-26 12:11 | XMS_ITS | CCD ---
Author Organization [facility] Care Team Providers Care Turbine Operator Name Role Phone DEEPTHI ANDRADE Admitting Unavailable DEEPTHI ANDRADE Attending Unavailable DEEPTHI ANDRADE Surgeon Unavailable KISHA, AGUSTÍN Primary Care Unavailable KISHA, AGUSTÍN Referring Unavailable HI Procedure Practitioner Unavailab monique GOODEN, DR HECTOR Baca Admitting Unavailable GIACOMO, DR HECTOR Baca Attending Unavailable AICHHOLZ, INSURANCE SALES PROFESSIONAL CONNIE Primary Care Unavailable GIACOMO, DR HECTOR Baca Consulting Unavailable KRISTINA ., DR MCCOLLUM Admitting Unavailable KRISTINA ., DR MCCOLLUM Attending Unavailable AICHHOLZ, INSURANCE SALES PROFESSIONAL CONNIE Primary Care Unavailable KRISTINA ., DR MCCOLLUM Consulting Unavailable REQUEST, DR HERNANDEZ LISTED Admitting Unavaila ble REQUEST, DR HERNANDEZ LISTED Attending Unavaila ble KISHA, AGUSTÍN R Primary Care Unavailable KRISTINA ., DR MCCOLLUM Admitting Unavailable KRISTINA ., DR MCCOLLUM Attending Unavailable AICHHOLZ, INSURANCE SALES PROFESSIONAL CONNIE Primary Care Unavailable KRISTINA ., DR MCCOLLUM Consulting Unavailable AGUBOSIM, TANIKA Consulting Unavailable SARAH BOOTH Consulting Unavailable BOOTH (ERROR), SARAH Consulting Unavailable KRISTINA ., DR MCCOLLUM Admitting Unavailable KRISTINA ., DR MCCOLLUM Attending Unavailable AICHHOLZ, INSURANCE SALES PROFESSIONAL CONNIE Primary Care Unavailable WEST, DR HECTOR Baca Consulting Unavailable AICHHOLZ, INSURANCE SALES PROFESSIONAL CONNIE Admitting Unavailable AICHHOLZ, INSURANCE SALES PROFESSIONAL CONNIE Attending Unavailable AICHHOLZ, INSURANCE SALES PROFESSIONAL CONNIE Primary Care Unavailable AICHHOLZ, INSURANCE SALES PROFESSIONAL CONNIE Consulting Unavailable SHEREEN, DR BELLO Carson Consulting Unavailable AICHHOLZ, INSURANCE SALES PROFESSIONAL CONNIE Admitting Unavailable AICHHOLZ, INSURANCE SALES PROFESSIONAL CONNIE Attending Unavailable KISHA, AGUSTÍN R Primary Care Unavailable AICHHOLZ, INSURANCE SALES PROFESSIONAL CONNIE Consulting Unavailable Sravanthi Ji Unavailable [phone] SRAVANTHI COLE Attending Unavailable GARTH LEÓN Attending Unavailable SRAVANTHI COLE Attending Unavailable Allergies Allergy Classification Reported Allergen(s) Allergy Type Date of Onset Reaction(s) Facility (1 source) Prochlorperazine Drug Allergy [facility] Repository (3 sources) Prochlorperazine Drug Allergy 3 [...] supply 20 mL 11 07/31/2023 Active levonorgestrel 0.092488 mg/hr intrauterine system (3 sources) Progestin, Progestin-containin [...] Range Facility Cryotherapy, skin lesionon 0 07-31-2023 [facility] Lesion biopsyon 07-31-2023 Type of biopsy: [...] taken Amount of lidocaine used: 0.5 cc [facility] CBC AUTO DIFFon 01-18-2022 BASO # 0.0 103/ul Normal 0.0-0.1 [facility] Comment on above: Performed By: #### C BC #### [facility] [address] [place] [address] Dr. Roney Disla Basophils/100 WBC (Bld) 0.4 % Normal 0.2-2.0 [facility] Comment on above: Performed By: #### C BC #### [facility] [address] [place] [address] Dr. Roney Disla EO # 0.1 103/ul Normal 0.0-0.7 [facility] Comment on above: Performed By: #### C BC #### [facility] [address] [place] [address] Dr. Roney Disla Eosinophils/100 WBC (Bld) 0.8 % Critically low 0.9-7.0 [facility] Comment on above: Performed By: #### C BC #### [facility] [address] [place] [address] Dr. Roney Disla Erythrocyte distribution width (RBC) [Ratio] 12.5 % Normal 11.0-15.0 [facility] Comment on above: Performed By: #### C BC #### [facility] [address] [place] [address] Dr. Roney Disla Hematocrit (Bld) [Volume fraction] 38.9 % Normal 36.0-48.0 [facility] Comment on above: Performed By: #### C BC #### [facility] [address] [place] [address] Dr. Roney Disla Hemoglobin (Bld) [Mass/Vol] 13.1 g/dL Normal 12.0-16.0 [facility] Comment on above: Performed By: #### C BC #### [facility] [address] [place] [address] Dr. Roney Disla IG # 0.02 10e3/ul Normal 0.00-0.03 [facility] Comment on above: Performed By: #### C BC #### [facility] [address] [place] [address] Dr. Roney Disla IG % 0.2 % Normal 0.0-0.5 [facility] Comment on above: Performed By: #### C BC #### [facility] [address] [place] [address] Dr. Roney Disla LYMPH # 2.3 103/ul Normal 1.2-3.8 [facility] Comment on above: Performed By: #### C BC #### [facility] [address] [place] [address] Dr. Roney Disla Lymphocytes/100 WBC (Bld) 27.3 % Normal 20.5-60.0 [facility] Comment on above: Performed By: #### C BC #### [facility] [address] [place] [address] Dr. Roney Disla MANUAL DIFF REQ NO Normal [facility] Comment on above: Performed By: #### C BC #### [facility] [address] [place], [place] [address] Dr. Roney Disla MCH (RBC) [Entitic mass] 29.5 pg Normal 26.7-34.0 [facility] Comment on above: Performed By: #### C BC #### [facility] [address] [place] [address] Dr. Roney Disla MCHC (RBC) [Mass/Vol] 33.7 g/dL Normal 29.9-35.2 [facility] Comment on above: Performed By: #### C BC #### [facility] [address] [place] [address] Dr. Roney Disla MCV (RBC) [Entitic vol] 87.6 fL Normal 81.0-99.0 [facility] Comment on above: Performed By: #### C BC #### [facility] [address] [place] [address] Dr. Roney Disla MONO # 0.6 103/ul Normal 0.3-0.8 [facility] Comment on above: Performed By: #### C BC #### [facility] [address] [place] [address] Dr. Roney Disla Monocytes/100 WBC (Bld) 6.7 % Normal 1.7-12.0 [facility] Comment on above: Performed By: #### C BC #### [facility] [address] [place] [address] Dr. Roney Disla NEUT # 5.3 103/ul Normal 1.4-6.5 [facility] Comment on above: Performed By: #### C BC #### [facility] [address] [place] [address] Dr. Roney Disla Neutrophils/100 WBC (Bld) 64.6 % Normal 43.0-75.0 [facility] Comment on above: Performed By: #### C BC #### [facility] [address] [place] [address] Dr. Roney Disla Platelet mean volume (Bld) [Entitic vol] 9.5 fL Normal 9.5-13.5 [facility] Comment on above: Performed By: #### C BC #### [facility] [address] [address] [address] Roney Disla PLT 306 103/ul Normal 150-450 [facility] Comment on above: Performed By: #### C BC #### [facility] [address] [address] [address] Roney Disla RBC 4.44 106/ul Normal 4.20-5.40 [facility] Comment on above: Performed By: #### C BC #### [facility] [address] [address] [address] Roney Disla WBC 8.2 103/ul Normal 4.0-11.0 [facility] Comment on above: Performed By: #### C BC #### [facility] [address] [place] [address] Dr. Roney Disla PREG HCG QUALon 01-18-2022 , QUAL Negative Normal NEGATIVE [facility] Comment on above: Performed By: #### P REG #### [facility] [address] [place] [address] Dr. Roney Disla Covid-19 PCR (CVDTB)on 12-22 SARS-CoV-2 (COVID-19) RNA CHAY+probe Ql (Unsp spec) Not detected Normal NOT DETECTED [facility] Comment on above: Result Comment: This test is not yet approved or cleared by the [place] FDA. When there are no FDA-approved or cleared tests available, and other criteria are met, FDA can make tests available under an emergency access mechanism called an Emergency Use Authorization (EUA). The EUA for this test is supported by the [place] Filler of Health and Human Service's (HHS's) declaration [...] SARS-CoV-2. Performed By: #### C VDTBH #### [facility] [address] [address] [address] Roney Disla MG MAMM SCREEN 3D JORDAN CADon 12-13-2021 MG MAMM SCREEN 3D JORDAN CAD Patient: ROSA ROBB Exam Date: 12/13/2021 : 1975 Gender:F Ordering : MACKENZIE CONNIE ARCEO [facility] Admission #: [id number] Family : Order #: [id number] CLICK HERE TO VIEW EXAM RADIOLOGY REPORT [...] skin cancer at age 65. LOCATION: [facility] BREAST COMPOSITION: Extremely dense, which lowers the [...] M.D. on 12/14/2021 at 13:54 Normal [facility] US PELVIS AND TRANSVAGon US PELVIS AND [...] HECTOR GOODEN Date: 2021-12-11 16:27 Normal [facility] CBC AUTO DIFFon 11-02-2021 BASO # 0.0 103/ul Normal 0.0-0.1 [facility] Comment on above: Performed By: #### C BC #### [facility] [address] [place] [address] Dr. Roney Disla Basophils/100 WBC (Bld) 0.4 % Normal 0.2-2.0 [facility] Comment on above: Performed By: #### C BC #### [facility] [address] [place] [address] Dr. Roney Disla EO # 0.1 103/ul Normal 0.0-0.7 [facility] Comment on above: Performed By: #### C BC #### [facility] [address] [place] [address] Dr. Roney Disla Eosinophils/100 WBC (Bld) 1.5 % Normal 0.9-7.0 [facility] Comment on above: Performed By: #### C BC #### [facility] [address] [place] [address] Dr. Roney Disla Erythrocyte distribution width (RBC) [Ratio] 12.4 % Normal 11.0-15.0 [facility] Comment on above: Performed By: #### C BC #### [facility] [address] [place] [address] Dr. Roney Disla Hematocrit (Bld) [Volume fraction] 39.3 % Normal 36.0-48.0 [facility] Comment on above: Performed By: #### C BC #### [facility] [address] [place] [address] Dr. Roney Disla Hemoglobin (Bld) [Mass/Vol] 13.0 g/dL Normal 12.0-16.0 [facility] Comment on above: Performed By: #### C BC #### [facility] [address] [place] [address] Dr. Roney Disla IG # 0.02 10e3/ul Normal 0.00-0.03 [facility] Comment on above: Performed By: #### C BC #### [facility] [address] [place] [address] Dr. Roney Disla IG % 0.2 % Normal 0.0-0.5 [facility] Comment on above: Performed By: #### C BC #### [facility] [address] [place] [address] Dr. Roney Disla LYMPH # 2.5 103/ul Normal 1.2-3.8 [facility] Comment on above: Performed By: #### C BC #### [facility] [address] [place] [address] Dr. Roney Disla Lymphocytes/100 WBC (Bld) 30.9 % Normal 20.5-60.0 [facility] Comment on above: Performed By: #### C BC #### [facility] [address] [place] [address] Dr. Roney Disla MANUAL DIFF REQ NO Normal [facility] Comment on above: Performed By: #### C BC #### [facility] [address] [place] [address] Dr. Roney Disla MCH (RBC) [Entitic mass] 29.1 pg Normal 26.7-34.0 [facility] Comment on above: Performed By: #### C BC #### [facility] [address] [place] [address] Dr. Roney Disla MCHC (RBC) [Mass/Vol] 33.1 g/dL Normal 29.9-35.2 [facility] Comment on above: Performed By: #### C BC #### [facility] [address] [place] [address] Dr. Roney Disla MCV (RBC) [Entitic vol] 88.1 fL Normal 81.0-99.0 [facility] Comment on above: Performed By: #### C BC #### [facility] [address] [address] [address] Roney Disla MONO # 0.6 103/ul Normal 0.3-0.8 [facility] Comment on above: Performed By: #### C BC #### [facility] [address] [address] [address] Roney Disla Monocytes/100 WBC (Bld) 7.0 % Normal 1.7-12.0 [facility] Comment on above: Performed By: #### C BC #### [facility] [address] [address] [address] Roney Disla NEUT # 4.8 103/ul Normal 1.4-6.5 [facility] Comment on above: Performed By: #### C BC #### [facility] [address] [place] [address] Dr. Roney Disla Neutrophils/100 WBC (Bld) 60.0 % Normal 43.0-75.0 [facility] Comment on above: Performed By: #### C BC #### [facility] [address] [place] [address] Dr. Roney Disla Platelet mean volume (Bld) [Entitic vol] 9.8 fL Normal 9.5-13.5 [facility] Comment on above: Performed By: #### C BC #### [facility] [address] [place] [address] Dr. Roney Disla PLT 299 103/ul Normal 150-450 [facility] Comment on above: Performed By: #### C BC #### [facility] [address] [place] [address] Dr. Roney Disla RBC 4.46 106/ul Normal 4.20-5.40 [facility] Comment on above: Performed By: #### C BC #### [facility] [address] [place] [address] Dr. Roney Disla WBC 8.1 103/ul Normal 4.0-11.0 [facility] Comment on above: Performed By: #### C BC #### [facility] [address] [address] [address] Roney Disla GLYCOHEMOGLOBIN A1Con 2021 ADA RECOMMENDATION SEE BELOW Normal [facility] Comment on above: Result Comment: ADA RECOMMENDED LIMIT 4.0 - 6.0 ADA THERAPEUTIC TARGET < 7.0 ACTION SUGGESTED > 7.0 Performed By: #### A 1C ####[facility] [id number] [address]Dr. Roney Disla Glucose [Mass/Vol] 108 mg/dL Normal [facility] Comment on above: Performed By: #### A 1C ####[facility] [id number] [id number] Roney Disla HbA1c (Bld) [Mass fraction] 5.4 % Normal 4.5-6.2 [facility] Comment on above: Performed By: #### A 1C ####[facility] [address] [address]Dr. Roney Disla LIPID PROFILEon 11-02-2021 CHOL-HDL RATIO NORM SEE BELOW Normal [facility] Comment on above: Result Comment: 3.3 - 4.4 LOW RISK 4.4 - 7.1 AVERAGE RISK 7.1 - 11.0 MODERATE RISK >11.0 HIGH RISK Performed By: #### T SH, CMP, LIPID #### [facility] [address] [address] [address] Roney Disla Cholesterol [Mass/Vol] 175 mg/dL Normal <=200 [facility] Comment on above: Performed By: #### T SH, CMP, LIPID #### [facility] [address] [address] [address] Roney Disla Cholesterol in HDL [Mass/Vol] 59 mg/dL Normal 40-60 [facility] Comment on above: Performed By: #### T SH, CMP, LIPID #### [facility] [address] [address] [address] Roney Disla Cholesterol in LDL [Mass/Vol] 104.8 mg/dL Normal [facility] Comment on above: Performed By: #### T SH, CMP, LIPID #### [facility] [address] [address] [address] Roney Disla Cholesterol.total/Ch olesterol in HDL [Mass ratio] 3.0 {ratio} Normal [facility] Comment on above: Performed By: #### T JEFFERSON CMP, LIPID #### [facility] [address] [address] [address] Roney Disla HDL NORMAL > or = 60 mg/dl - LO W CARDIOVASCULAR RISK <40 mg/dl - HIGH CARDIOVASCULAR RISK Normal [facility] Comment on above: Performed By: #### T JEFFERSON, CMP, LIPID #### [facility] [address] [place] [address] Dr. Roney Disla LDL CALC NORMAL SEE BELOW Normal [facility] Comment on above: Result Comment: <100 mg/dl OPTIMAL 100 - 129 mg/dl NEAR OR ABOVE OPTIMAL 130 - 159 mg/dl BORDERLINE HIGH 160 - 189 mg/dl HIGH >190 mg/dl VERY HIGH Performed By: #### T JEFFERSON CMP, LIPID #### [facility] [address] [address] [address] Roney Disla Triglyceride [Mass/Vol] 56 mg/dL Normal <=150 [facility] Comment on above: Performed By: #### T JEFFERSON CMP, LIPID #### [facility] [address] [place] [address] Dr. Roney Disla VLDL CALC 11.2 mg/dL Normal [facility] Comment on above: Performed By: #### T JEFFERSON CMP, LIPID #### [facility] [address] [place] [address] Dr. Roney Disla PROF 14(COMP METB)on 022 Albumin [Mass/Vol] 4.1 g/dL Normal 3.4-5.0 [facility] Comment on above: Performed By: #### T JEFFERSON CMP, LIPID #### [facility] [address] [place] [address] Dr. Roney Disla Albumin/Globulin [Mass ratio] 1.1 {ratio} Normal [facility] Comment on above: Performed By: #### T JEFFERSON CMP, LIPID #### [facility] [address] [address] [address] Roney Disla ALP [Catalytic activity/Vol] 62 U/L Normal 46-116 [facility] Comment on above: Performed By: #### T SH, CMP, LIPID #### [facility] [address] [place] [address] Dr. Roney Disla ALT [Catalytic activity/Vol] 28 U/L Normal 14-59 [facility] Comment on above: Performed By: #### T SH, CMP, LIPID #### [facility] [address] [place] [address] Dr. Roney Disla Anion gap [Moles/Vol] 9.4 mmol/L Normal [facility] Comment on above: Performed By: #### T SH, CMP, LIPID #### [facility] [address] [place] [address] Dr. Roney Disla AST [Catalytic activity/Vol] 16 U/L Normal 15-37 [facility] Comment on above: Performed By: #### T SH, CMP, LIPID #### [facility] [address] [place] [address] Dr. Roney Disla Bilirubin [Mass/Vol] 0.3 mg/dL Normal 0.2-1.0 [facility] Comment on above: Performed By: #### T SH, CMP, LIPID #### [facility] [address] [place] [address] Dr. Roney Disla Calcium [Mass/Vol] 9.7 mg/dL Normal 8.5-10.1 [facility] Comment on above: Performed By: #### T SH, CMP, LIPID #### [facility] [address] [place] [address] Dr. Roney Disla Chloride [Moles/Vol] 102 mmol/L Normal 98-107 [facility] Comment on above: Performed By: #### T SH, CMP, LIPID #### [facility] [address] [place] [address] Dr. Roney Disla CO2 [Moles/Vol] 31.0 mmol/L Normal 21.0-32.0 [facility] Comment on above: Performed By: #### T SH, CMP, LIPID #### [facility] [address] [address] [address] Roney Disla Creatinine [Mass/Vol] 0.64 mg/dL Normal 0.55-1.02 [facility] Comment on above: Performed By: #### T SH, CMP, LIPID #### [facility] [address] [address] [address] Roney Disla EGFR-AF MALAGASY >60 Normal >=60 [facility] Comment on above: Performed By: #### T SH, CMP, LIPID #### [facility] [address] [address] [address] Roney Disla EGFR-NON AF MALAGASY >60 Normal >=60 [facility] Comment on above: Performed By: #### T SH, CMP, LIPID #### [facility] [address] [address] [address] Roney Disla Globulin (S) [Mass/Vol] 3.6 g/dL Normal [facility] Comment on above: Performed By: #### T SH, CMP, LIPID #### [facility] [address] [address] [address] Roney Disla Glucose [Mass/Vol] 86 mg/dL Normal 74-106 [facility] Comment on above: Performed By: #### T SH, CMP, LIPID #### [facility] [address] [address] [address] Roney Disla Potassium [Moles/Vol] 4.4 mmol/L Normal 3.5-5.1 [facility] Comment on above: Performed By: #### T SH, CMP, LIPID #### [facility] [address] [address] [address] Roney Disla Protein [Mass/Vol] 7.7 g/dL Normal 6.4-8.2 [facility] Comment on above: Performed By: #### T SH, CMP, LIPID #### [facility] [address] [address] [address] Roney Disla Sodium [Moles/Vol] 138 mmol/L Normal 136-145 [facility] Comment on above: Performed By: #### T SH, CMP, LIPID #### [facility] [address] [address] [address] Roney Disla Urea nitrogen [Mass/Vol] 18.0 mg/dL Normal 7.0-18.0 [facility] Comment on above: Performed By: #### T SH, CMP, LIPID #### [facility] [address] [address] [address] Roney Disla Urea nitrogen/Creatinine [Mass ratio] 28.1 mg/mg Normal [facility] Comment on above: Performed By: #### T SH, CMP, LIPID #### [facility] [address] [address] [address] Roney Disla TSHon 11-02-2021 TSH 1.335 uIU/mL Normal 0.358-3.740 [facility] Comment on above: Performed By: #### T SH, CMP, LIPID #### [facility] [address] [place] [address] Dr. Roney Disla TSH RANGE SEE BELOW Normal [facility] Comment on above: Result Comment: <0.3 4 UIU/ml HYPERTHYROID 0.34-5.60 UIU/ml EUTHYROID >5.60 UIU/ml HYPOTHYROID Performed By: #### T SH, CMP, LIPID #### [facility] [address] [address] [address] Roney Disla Operative Reporton Operative Report MR#: [id number] S [facility] Pt. Name: Rosa Robb Room #: 0C [...] is a 45-year-old female who presented to ne with chronic diarrhea. Decision was made to [...] Andrade MD Date Trans: 12/19/2020 09:59 A/israel [id number] Normal [facility] POC URINE PREGNANCYon 2020 Beta HCG ( test) Ql (U) Negative Normal NEGATIVE [facility] Comment on above: Performed By: #### [id number] #### [facility] [address] *SARS-CoV-2 COVID-19on 12-16 SARS-CoV-2 (COVID-19) RNA CHAY+probe Ql (Unsp spec) Not detected Normal Not Detected [facility] Comment on above: Order Comment: The A ptima SARS-CoV-2 assay is a nucleic acid amplification test intended for the qualitative detection of RNA from SARS-CoV-2 isolated and purified from nasopharyngeal (GRIND OPERATOR),oropharyngeal (OP), nasal swab, sputum, and bronchoalveolar lavage (BAL) specimens from patients with signs and symptoms of infection who are suspected of COVID-19. Results are for the identification of SARS-CoV-2 RNA. The SARS-CoV-2 RNA is generally detectable during the acute phase of infection. The Aptima SARS-CoV-2 Assay on the [place] [employer] system is intended for use by laboratory personnel specifically instructed and trained in the operation of the [place] [employer] system. The Aptima SARS-CoV-2 assay is [...] information. Performed By: #### [id number] #### [facility] [address] Encounters Encounter Date Encounter Type Care Provider Facility Start: 09-11-2023 End: 09-11-2023 ambulatory SRAVANTHI A FELTER Not Available Start: 08-04-2023 Refill Connie Arceo GRIND OPERATOR Work Phone: [facility] Comment on above: Hypothyroidism, unsp ecified (CMS/HCC); Hypothyroidism (CMS/HCC) Start: 07-31-2023 Bamboo flowsheet Sravanthi A Fel ter WOOD CABINETMAKER-INSURANCE SALES PROFESSIONAL Work Phone: [facility] Start: 07-31-2023 Bamboo flowsheet Sravanthi A Fel ter WOOD CABINETMAKER-INSURANCE SALES PROFESSIONAL Work Phone: [facility] Start: 07-31-2023 End: 07-31-2023 ambulatory SRAVANTHI A FELTER Not Available Start: 07-31-2023 End: 07-31-2023 Office outpatient visit 25 minutes Sravanthi A Felter WOOD CABINETMAKER-INSURANCE SALES PROFESSIONAL Work Phone: [facility] Comment on above: Melanocytic nevus [...] preprocedural examination DR CHUN GUO . [facility] Start: 01-15-2022 Encounter for preprocedural cardiovascular examination DR CHUN GUO . [facility] Start: 01-15-2022 Encounter for preprocedural laboratory examination DR CHUN GUO . [facility] Start: 01-11-2022 End: 01-12-[address] CHUN GUO . Facility:[facility] Start: 01-11-2022 End: 01-12-2022 Encounter for preprocedural laboratory examination DR CHUN GUO . Facility:[facility] Start: 12-13-2021 End: 12-14-2021 ambulatory MACKENZIE ARCEO Facility:[facility] Start: 12-11-2021 End: 12-12-[address] CHUN GUO . Facility:[facility] Start: 11-07-2021 Encounter for genera l adult medical examination without abnormal findings MACKENZIE CONNIE NITISH [facility] Start: 11-02-2021 End: 11-03-2021 ambulatory MACKENZIE VELASQUEZ CHERELLEPepitoDENISEWero Facility:[facility] Start: 11-02-2021 End: 11-03-2021 Encounter for general adult medical examination without abnormal findings MACKENZIE VELASQUEZ CHEERLLEPepitoDENISEWero Facility:[facility] Start: 10-25-2021 End: 10-26-2021 ambulatory NONE LISTED REQUEST Facility:[facility] Start: 12-19-2020 End: 12-20-2020 ambulatory DEEPTHI ANDRADE Facility:[facility] Procedures Date Procedure Procedure Detail Performing Clinician Start: 07-31-2023 CRYOTHERAPY SKIN LESION Sravanthi Cole WOOD CABINETMAKER-INSURANCE SALES PROFESSIONAL Work Phone: Start: 07-31-2023 SKIN / NAIL BIOPSY Kathleen leonardo Cole WOOD CABINETMAKER-INSURANCE SALES PROFESSIONAL Work Phone: Start: 12-19-2020 ANES LWR INTST NDSC NOS DEEPTHI ANDRADE Start: 12-19-2020 Colonoscopy w/biopsy single/multiple DEEPTHI ANDRADE H/O: surgery History of nevus excision Sravanthi Cole WOOD CABINETMAKER-INSURANCE SALES PROFESSIONAL Work Phone: Plan of Treatment Date Care Activity Detail Author Start: 08-02-2024 End: 08-02-2024 Patient encounter procedure 08/02/2024 9:40 AM EST Office Visit [facility] [address] [place] [id number] Sravanthi Cole, WOOD CABINETMAKER-INSURANCE SALES PROFESSIONAL [address] [place] [address] [facility] Start: 09-11-2023 End: 09-11-2023 Patient encounter procedure 09/11/2023 9:40 AM EDT Office Visit [facility] [address] [place] [address] Kelsey Sravanthi Gilman, WOOD CABINETMAKER-INSURANCE SALES PROFESSIONAL [address] [place] [address] [facility] Start: 07-31-2023 End: 07-31-2023 Patient encounter procedure 07/31/2023 9:05 AM EST Office Visit [facility] [address] [place] [address] Kelsey Sravanthi Gilman, WOOD CABINETMAKER-INSURANCE SALES PROFESSIONAL [address] [place] [address] Arrived [facility] Comment on above: Arrived Start: 02-21-2023 Influenza vaccination Influenza Vaccine (#1) [facility] Start: 2015 Screening for malignant neoplasm of breast Mammogram [facility] Start: 08-30-2005 Screening for malignant neoplasm of cervix [facility] Start: 08-30-1996 Screening for malignant neoplasm of cervix Pap Smear [facility] Start: 1975 Screening for malignant neoplasm of colon [facility] Dermatopathology exam Dermatopat hology exam Pathology and Cytology Timed Neoplasm of unspecified behavior of bone, soft tissue, and skin Release Upon Ordering for 1 Occurrences starting 07/31/2023 [facility] Work Phone: Comment on above: Release Upon Ordering for 1 Occurrences starting 07/31/2023 Immunizations Immunization Date Immunization Notes Care Provider Aaron julian 03-12-2013 influenza virus vacc ine, unspecified formulation Sravanthi Cole WOOD CABINETMAKER[employer]INSURANCE SALES PROFESSIONAL Work Phone: [facility] Payers Date Payer Category Payer Unknown BCBS BCBS xxxxxx [id number] 2022-Present [phone] [address] [place] [address] [id number] 2022 Unknown [id number] 2019 Unknown [id number] 1975 Unknown [id number] 1975 Unknown [id number] [id number] 1975 Unknown [id number] [id number] 1975 Unknown [id number] 2.16.840.1.347048.3.579.2.593 1975 Unknown [id number] [id number] 1975 Unknown [id number] 2.16.840.1.280630.3.579.2.593 1975 Unknown [id number] 2.16.840.1.445675.3.579.2.593 1975 Unknown [id number] 2.16.840.1.893230.3.579.2.1259 1975 Unknown [id number] 2.16.840.1.923120.3.579.2.1259 1975 Unknown [id number] [id number] 1959 Self-pay [id number] Unknown [id number] Unknown [id number] Social History Date Type Detail Facility Start: 05-11-2023 End: 07-31-2023 Tobacco smoking status NHIS Never smoked tobacco [facility] Start: 05-11-2023 End: 07-31-[address] [facility] Start: 05-11-2023 End: 07-31-[address] [facility] Start: 1975 Sex Assigned At Not on file [facility] Start: 05-12-2023 Gender identity Identifies as female gender (finding) [facility] Start: 07-31-2023 Tobacco use and exposure Smokeless t obacco non-user [facility] History of Present illness Narrative 07-31-2023 Sravanthi Cole, WOOD CABINETMAKER-INSURANCE SALES PROFESSIONAL - 07/31/2023 9:05 AM EST Note Date [...] Examined Right arm Examined Patient wearing nail syrian, Denies dark streaks on toenails Left arm [...] Back, Right Lower Back, Right Upper Back [place] and brown stuck on verrucous scaly papule [...] limited to risks of scarring, darker or stenocaptioner pigmentary changes, recurrence, incomplete removal and infection. [...] year skin exam documented in this encounter [facility] Clinical Note 01-18-2022 Note Date & Type Note Facility 01-18-2022 Note OPERATIVE NOTE OPERATION DATE: 01/18/2022 PROCEDURE: Removal of IUD as well as placement of Mirena IUD. PREOPERATIVE DIAGNOSIS: Retained IUD. POSTOPERATIVE DIAGNOSIS: Retained IUD. ANESTHESIA: General. SURGEON: Chun Guo D.O. CHECKOUT OPERATOR: None. BLOOD LOSS: 5 mL. URINE OUTPUT: [...] to recovery room in stable condition. [facility] Evaluation note Note Date & Type [...] section and content) DATE CREATED AUTHOR 12/22/2020 [facility] DATE CREATED AUTHOR AUTHOR'S ORGANIZ ATION 08/25/2022 [facility] DATE CREATED AUTHOR AUTHOR'S ORGANIZ ATION 09/12/2023 [facility] EPIC Care Teams (unrecognized sec tion and content) Turbine Operator Relationship Specialty Start Date End Date Sravanthi Cole APRN-MACKENZIE [address] [place] [address] PCP - [employer] 11/21/22 Turbine Operator Relationship Specialty Start Date End Date Sravanthi Cole, WOOD CABINETMAKER-INSURANCE SALES PROFESSIONAL [address] [place] [id number] PCP - [employer] 11/21/22 Turbine Operator Relationship Specialty Start Date End Date Sravanthi Cole, WOOD CABINETMAKER-INSURANCE SALES PROFESSIONAL [address] [place] [address] PCP - [employer] 11/21/22 Reason for [...] BE BASED ON THE PRIMARY CLINICAL RECORDS. [employer] provides no warranty or guarantee of the accuracy or completeness of information in this document.
[2024-02-26 13:27] LABS: Alanine Aminotransferase 38 U/L (14-59); Albumin Globulin Ratio 1.1; Albumin Level 3.9 g/dL (3.4-5.0); Alkaline Phosphatase 69 U/L (46-116); Anion Gap 10.8; Aspartate Amino Transferase 22 U/L (15-37); BUN Creatinine Ratio 17.6; Bilirubin Total 0.4 mg/dL (0.2-1.0); Calcium 9.9 mg/dL (8.5-10.1); Carbon Dioxide 31.1 mmol/L (21.0-32.0); Chloride 104 mmol/L (98-107); Chol HDL Ratio 3.1; Cholesterol 219 mg/dL (<=200); Estimated GFR (African America >60 (>=60); Estimated GFR (Non-African Ame >60 (>=60); Globulin 3.5 g/dL; Glucose 90 mg/dL (74-106); HDL Cholesterol 70 mg/dL (40-60); Potassium 4.9 mmol/L (3.5-5.1); Sodium 141 mmol/L (136-145); Thyroid Stimulating Hormone 2.782 uIU/mL (0.358-3.740); Total Protein 7.4 g/dL (6.4-8.2); Triglycerides 74 mg/dL (<=150); VLDL CHOLESTEROL 14.8 mg/dL
== END 2024-02-26 11:52 | disposition home or self-care (01) ==
LOC: LAB 11:54
PROVIDERS: PCP Nurse Practitioner; Visit Provider Nurse Practitioner
DX: Z00.00 Encounter for general adult medical examination without abnormal findings (principal)
CPT/HCPCS: 36415; 80053; 80061; 84443; 85025

== ENCOUNTER 2024-09-16 09:45 | Outpatient (OUT) | payer BC, SELFPAY ==
--- OUTSIDE RECORDS SUMMARY | 2024-09-16 10:05 | XMS_ITS | CCD ---
Author Organization [facility] Care Team Providers Care Pill Packer Name Role Phone DEEPTHI ANDRADE Admitting Unavailable DEEPTHI ANDRADE Attending Unavailable DEEPTHI ANDRADE Surgeon Unavailable KISHA, AGUSTÍN Primary Care Unavailable KISHA, AGUSTÍN Referring Unavailable MO Procedure Practitioner Unavailab monique GOODEN, DR HECTOR Baca Admitting Unavailable GIACOMO, DR HECTOR Baca Attending Unavailable AICHHOLZ, CHEMICAL PROCESS OPERATOR CONNIE Primary Care Unavailable GIACOMO, DR HECTOR Baca Consulting Unavailable KRISTINA ., DR MCCOLLUM Admitting Unavailable KRISTINA ., DR MCCOLLUM Attending Unavailable AICHHOLZ, CHEMICAL PROCESS OPERATOR CONNIE Primary Care Unavailable KRISTINA ., DR MCCOLLUM Consulting Unavailable REQUEST, DR HERNANDEZ LISTED Admitting Unavaila ble REQUEST, DR HERNANDEZ LISTED Attending Unavaila ble KISHA, AGUSTÍN R Primary Care Unavailable KRISTINA ., DR MCCOLLUM Admitting Unavailable KRISTINA ., DR MCCOLLUM Attending Unavailable AICHHOLZ, CHEMICAL PROCESS OPERATOR CONNIE Primary Care Unavailable KRISTINA ., DR MCCOLLUM Consulting Unavailable AGUBOSIM, TANIKA Consulting Unavailable SARAH BOOTH Consulting Unavailable BOOTH (ERROR), SARAH Consulting Unavailable KRISTINA ., DR MCCOLLUM Admitting Unavailable KRISTINA ., DR MCCOLLUM Attending Unavailable AICHHOLZ, CHEMICAL PROCESS OPERATOR CONNIE Primary Care Unavailable WEST, DR HECTOR Baca Consulting Unavailable AICHHOLZ, CHEMICAL PROCESS OPERATOR CONNIE Admitting Unavailable AICHHOLZ, CHEMICAL PROCESS OPERATOR CONNIE Attending Unavailable AICHHOLZ, CHEMICAL PROCESS OPERATOR CONNIE Primary Care Unavailable AICHHOLZ, CHEMICAL PROCESS OPERATOR CONNIE Consulting Unavailable SHEREEN, DR BELLO Carson Consulting Unavailable AICHHOLZ, CHEMICAL PROCESS OPERATOR CONNIE Admitting Unavailable AICHHOLZ, CHEMICAL PROCESS OPERATOR CONNIE Attending Unavailable KISHA, AUGSTÍN R Primary Care Unavailable AICHHOLZ, CHEMICAL PROCESS OPERATOR CONNIE Consulting Unavailable Kelsey DIOR-Sravanthi MANN Unavailable Kelsey BELL, Sravanthi Gilman Unavailable Jun Cárdenas MD Primary Care Provider Marielos GIBSON, Connie Unavailable DORI LEÓN Attending Unavailable SRAVANTHI COLE Attending Unavailable CONNIE ARCEO Attending Unavailable SRAVANTHI COLE Attending Unavailable CONNIE ARCEO Attending Unavailable Allergies Allergy Classification Reported Allergen(s) Allergy Type Date of Onset Reaction(s) Facility (1 source) Prochlorperazine Drug Allergy [facility] Repository (17 sources) Prochlorperazine Drug Allergy 3 Rash [facility] Medications Current Medications Medication Drug Class(es) Dates Sig (Normalized) Sig (Original) fluocinonide 0.5 mg/ml topical solution (16 sources) Corticosteroid Start: 07-31-2023 fluocinonide (Lidex) 0.05 % external solution Indications: Rash and other nonspecific skin eruption Apply to affected areas on the scalp, up to twice a day when flared, 30 day supply 20 mL 11 07/31/2023 Active levonorgestrel 0.225718 mg/hr intrauterine system (17 sources) Progestin, Progestin-containin g Intrauterine Device Levonorgestrel (Mirena, 52 MG,) 20 MCG/DAY intrauterine device by Intrauterine route. Active levothyroxine sodium 0.088 mg oral tablet (20 sources) l-Thyroxine Start: 03-02-2024 End: 09-08-2024 take 1 tablet by mouth before mealtime levothyroxine (Synthroid, Levoxyl) 88 MCG tablet Indications: Hypothyroidism, unspecified type (CMS/HCC) Take 1 tablet (88 mcg) by mouth in the morning. Take before meals. 90 tablet 1 06/10/2024 09/08/2024 Active Start: 08-04-2023 End: 05-17-2024 take 1 tablet by mouth before mealtime levothyroxine (Synthroid, Levoxyl) 75 MCG tablet Indications: Hypothyroidism (CMS/HCC) Take 1 tablet (75 mcg) by mouth in the morning. Take before meals. 90 tablet 02/17/2024 03/02/2024 Discontinued (Therapy completed) End: 09-10-2024 take 1 tablet by mouth in the morning levothyroxine (Synthroid, Levoxyl) 25 MCG tablet Take 1 tablet by mouth in the morning. 03/02/2024 Discontinued (Therapy completed) phentermine hydrochloride 37.5 mg oral tablet (8 sources) Sympathomimetic Amine Anorectic Start: 07-26-2024 End: 10-24-2024 take 1 tablet by mouth before mealtime phentermine (Adipex-P) 37.5 MG tablet Indications: Encounter for weight management Take 1 tablet (37.5 mg) by mouth in the morning. Take before meals. 90 tablet 07/26/2024 10/24/2024 Active traZODone hydrochloride 50 mg oral tablet (20 sources) Serotonin Reuptake Inhibitor Start: 05-30-2023 End: 05-31-2024 take 1 tablet by mouth at bedtime traZODone (Desyrel) 50 MG tablet Indications: Insomnia, unspecified , Insomnia Take 1 tablet (50 mg) by mouth at bedtime 90 tablet 1 03/02/2024 Active Problems Active Problems Problem Classification Problem Date Documented Date Episodic/Chronic Administrative/socia l admission (2 sources) Patient encounter status; Translations: [Persons encountering health services in other specified circumstances] 07-26-2024 Episodic Cardiac dysrhythmias (18 sources) Re-entrant atrioventricular node tachycardia; 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)] Onset: 08-30-2013 12-18-2023 Chronic Miscellaneous mental health disorders (2 sources) Primary insomnia; Translations: [Primary insomnia] 08-04-2024 Chronic Neoplasms of unspecified nature or uncertain behavior (1 source) Neoplastic disease; Translations: [Neoplasm of unspecified behavior of bone, soft tissue, and skin] 07-31-2023 Episodic Other and unspecified benign neoplasm (3 sources) Melanocytic nevus of trunk; Translations: [Melanocytic nevi of trunk] 07-31-2023 Episodic Other and unspecified benign neoplasm (1 source) Skin lesion; Translations: [Hemangioma of skin and subcutaneous tissue] 07-31-2023 Episodic Other circulatory disease (2 sources) Spider nevus; Translations: [Nevus, non-neoplastic] 08-02-2024 Episodic Other inflammatory condition of skin (2 sources) Rosacea; Translations: [Other rosacea] 08-02-2024 Chronic Other inflammatory condition of skin (2 sources) Seborrheic dermatitis; Translations: [Other seborrheic dermatitis] 08-02-2024 Episodic Other nutritional; endocrine; and metabolic disorders (2 sources) Weight increased; Translations: [Abnormal weight gain] 07-26-2024 Episodic Other nutritional; endocrine; and metabolic disorders (4 sources) Body mass index 25-29 - overweight; Translations: [Overweight] Onset: 08-04-2024 08-04-2024 Episodic Other skin disorders (1 source) Eruption; Translations: [Rash and other nonspecific skin eruption] 07-31-2023 Episodic Other skin disorders (3 sources) Lentiginosis; Translations: [Other melanin hyperpigmentation] 07-31-2023 Episodic Other skin disorders (3 sources) Inflamed seborrheic keratosis; Translations: [Inflamed seborrheic keratosis] 07-31-2023 Episodic Other skin disorders (2 sources) Seborrheic keratosis; Translations: [Other seborrheic keratosis] 08-02-2024 Episodic Other skin disorders (2 sources) Actinic keratosis; Translations: [Actinic keratosis] 08-02-2024 Episodic Residual codes; unclassified (2 sources) Patient requested procedure; Translations: [Encounter for procedure for purposes other than remedying health state, unspecified] 08-02-2024 Episodic Residual codes; unclassified (2 sources) History of atypical nevus; Translations: [Personal history of other specified conditions] 08-02-2024 Episodic Residual codes; unclassified (2 sources) Family history of malignant melanoma; Translations: [Family history of malignant neoplasm of other organs or systems] 08-02-2024 Episodic Thyroid disorders (20 sources) Hypothyroidism; Translations: [Hypothyroidism, unspecified] Onset: 08-04-2023 [...] MALIG NEOPLASM OTH ORGN/SYS] Onset: 12-18-2021 Episodic Residual codes; unclassified (17 sources) Insomnia; Translations: [Insomnia, unspecified] Onset: 03-02-2024 02-17-2024 Episodic Residual codes; unclassified (14 sources) H/O cardiac surgery; Translations: [Other specified postprocedural states] Onset: 08-30-2013 12-18-2023 Episodic Viral infection (14 sources) Herpes zoster without complication; Translations: [Zoster without complications] Onset: 12-18-2023 12-18-2023 Episodic Results Test Name Value Interpretation Reference Range Facility No Panel Informationon 08-02 [facility] ALL CBC WITH AUTO DIFFon BASOPHILS ABSOLUTE AUTO 0.1 [facility] Basophils/100 WBC (Bld) 0.6 % 0.2 - 2.0 % [facility] Eosinophils/100 WBC (Bld) 1.5 % 0.9 - 7.0 % [facility] Erythrocyte distribution width (RBC) [Ratio] 12.5 % 11.0 - 15.0 % [facility] Hematocrit (Bld) [Volume fraction] 38.6 % 36.0 - 48.0 % [facility] Hemoglobin (Bld) [Mass/Vol] 12.9 g/dL 12.0 - 16.0 g/dL [facility] IMMATURE GRANULOCYTES ABS AUTO 0.02 [facility] Immature granulocytes/100 WBC (Bld) 0.3 % 0.0 - 0.5 % [facility] Interpretation and review of laboratory results Abnormal [facility] LYMPHOCYTES ABSOLUTE AUTO 2.6 [facility] Lymphocytes/100 WBC (Bld) 32.8 % 20.5 - 60.0 % [facility] MCH (RBC) [Entitic mass] 29.9 pg 26.7 - 34.0 pg [facility] MCHC (RBC) [Mass/Vol] 33.4 g/dL 29.9 - 35.2 g/dL [facility] MCV (RBC) [Entitic vol] 89.4 fL 81.0 - 99.0 fL [facility] MONOCYTES ABSOLUTE AUTO 0.6 [facility] Monocytes/100 WBC (Bld) 7.0 % 1.7 - 12.0 % [facility] NEUTROPHILS ABSOLUTE AUTO 4.6 [facility] Neutrophils/100 WBC (Bld) 57.8 % 43.0 - 75.0 % [facility] Platelet mean volume (Bld) [Entitic vol] 9.4 fL Low 9.5 - 13.5 fL [facility] EO # 0.1 [facility] PLT 335 [facility] RBC 4.32 [facility] WBC 7.9 [facility] Cryotherapy, skin lesionon 0 07-31-2023 [facility] Lesion biopsyon 07-31-2023 Type of biopsy: tangential [...] taken Amount of lidocaine used: 0.5 cc [facility] CBC AUTO DIFFon 01-18-2022 BASO # 0.0 103/ul Normal 0.0-0.1 [facility] Comment on above: Performed By: #### C BC #### [facility] [address] [address] [address] Roney Disla Basophils/100 WBC (Bld) 0.4 % Normal 0.2-2.0 [facility] Comment on above: Performed By: #### C BC #### [facility] [address] [address] [address] Roney Disla EO # 0.1 103/ul Normal 0.0-0.7 [facility] Comment on above: Performed By: #### C BC #### [facility] [address] [place] [address] Dr. Roney Disla Eosinophils/100 WBC (Bld) 0.8 % Critically low 0.9-7.0 [facility] Comment on above: Performed By: #### C BC #### [facility] [address] [place] [address] Dr. Roney Disla Erythrocyte distribution width (RBC) [Ratio] 12.5 % Normal 11.0-15.0 [facility] Comment on above: Performed By: #### C BC #### [facility] [address] [place] [address] Dr. Roney Disla Hematocrit (Bld) [Volume fraction] 38.9 % Normal 36.0-48.0 [facility] Comment on above: Performed By: #### C BC #### [facility] [address] [address] [address] Roney Disla Hemoglobin (Bld) [Mass/Vol] 13.1 g/dL Normal 12.0-16.0 [facility] Comment on above: Performed By: #### C BC #### [facility] [address] [place] [address] Dr. Roney Disla IG # 0.02 10e3/ul Normal 0.00-0.03 [facility] Comment on above: Performed By: #### C BC #### [facility] [address] [place] [address] Dr. Roney Disla IG % 0.2 % Normal 0.0-0.5 [facility] Comment on above: Performed By: #### C BC #### [facility] [address] [place] [address] Dr. Roney Disla LYMPH # 2.3 103/ul Normal 1.2-3.8 [facility] Comment on above: Performed By: #### C BC #### [facility] [address] [place] [address] Dr. Roney Disla Lymphocytes/100 WBC (Bld) 27.3 % Normal 20.5-60.0 [facility] Comment on above: Performed By: #### C BC #### [facility] [address] [place] [address] Dr. Roney Disla MANUAL DIFF REQ NO Normal [facility] Comment on above: Performed By: #### C BC #### [facility] [address] [place] [address] Dr. Roney Disla MCH (RBC) [Entitic mass] 29.5 pg Normal 26.7-34.0 [facility] Comment on above: Performed By: #### C BC #### [facility] [address] [place] [address] Dr. Roney Disla MCHC (RBC) [Mass/Vol] 33.7 g/dL Normal 29.9-35.2 [facility] Comment on above: Performed By: #### C BC #### [facility] [address] [place] [address] Dr. Roney Disla MCV (RBC) [Entitic vol] 87.6 fL Normal 81.0-99.0 [facility] Comment on above: Performed By: #### C BC #### [facility] [address] [place] [address] Dr. Roney Disla MONO # 0.6 103/ul Normal 0.3-0.8 [facility] Comment on above: Performed By: #### C BC #### [facility] [address] [place] [address] Dr. Roney Disla Monocytes/100 WBC (Bld) 6.7 % Normal 1.7-12.0 [facility] Comment on above: Performed By: #### C BC #### [facility] [address] [place] [address] Dr. Roney Disla NEUT # 5.3 103/ul Normal 1.4-6.5 [facility] Comment on above: Performed By: #### C BC #### [facility] [address] [place] [address] Dr. Roney Disla Neutrophils/100 WBC (Bld) 64.6 % Normal 43.0-75.0 [facility] Comment on above: Performed By: #### C BC #### [facility] [address] [place] [address] Dr. Roney Disla Platelet mean volume (Bld) [Entitic vol] 9.5 fL Normal 9.5-13.5 [facility] Comment on above: Performed By: #### C BC #### [facility] [address] [place] [address] Dr. Roney Disla PLT 306 103/ul Normal 150-450 [facility] Comment on above: Performed By: #### C BC #### [facility] [address] [place] [address] Dr. Roney Disla RBC 4.44 106/ul Normal 4.20-5.40 [facility] Comment on above: Performed By: #### C BC #### [facility] [address] [place] [address] Dr. Roney Disla WBC 8.2 103/ul Normal 4.0-11.0 [facility] Comment on above: Performed By: #### C BC #### [facility] [address] [place] [address] Dr. Roney Disla PREG HCG QUALon 01-18-2022 , QUAL Negative Normal NEGATIVE [facility] Comment on above: Performed By: #### P REG #### [facility] [address] [place] [address] Dr. Roney Disla Covid-19 PCR (CVDTB)on 12-22 SARS-CoV-2 (COVID-19) RNA CHAY+probe Ql (Unsp spec) Not detected Normal NOT DETECTED [facility] Comment on above: Result Comment: This test is not yet approved or cleared by the [place] FDA. When there are no FDA-approved or cleared tests available, and other criteria are met, FDA can make tests available under an emergency access mechanism called an Emergency Use Authorization (EUA). The EUA for this test is supported by the [place] of Health and Human Service's (HHS's) declaration [...] consistent with SARS-CoV-2. Performed By: #### C [facility] #### [facility] [address] [place] [address] Dr. Roney Disla MAMM SCREEN 3D JORDAN CADon 12-13-2021 MG MAMM SCREEN 3D JORDAN CAD Patient: ROSA ROBB Exam Date: 12/13/2021 : 1975 Gender:F Ordering : MACKENZIE ARCEO [facility] Admission #: [id number] Family : Order #: [id number] CLICK HERE TO VIEW EXAM RADIOLOGY REPORT [...] skin cancer at age 65. LOCATION: [facility] BREAST COMPOSITION: Extremely dense, which lowers [...] M.D. on 12/14/2021 at 13:54 Normal [facility] US PELVIS AND TRANSVAGon US PELVIS [...] by: HECTOR GOODEN Date: 2021-12-11 16:27 Normal [facility] CBC AUTO DIFFon 11-02-2021 BASO # 0.0 103/ul Normal 0.0-0.1 [facility] Comment on above: Performed By: #### C BC #### [facility] [address] [address] [address] Roney Disla Basophils/100 WBC (Bld) 0.4 % Normal 0.2-2.0 [facility] Comment on above: Performed By: #### C BC #### [facility] [address] [address] [address] Roney Disla EO # 0.1 103/ul Normal 0.0-0.7 [facility] Comment on above: Performed By: #### C BC #### [facility] [address] [place] [address] Dr. Roney Disla Eosinophils/100 WBC (Bld) 1.5 % Normal 0.9-7.0 [facility] Comment on above: Performed By: #### C BC #### [facility] [address] [place] [address] Dr. Roney Disla Erythrocyte distribution width (RBC) [Ratio] 12.4 % Normal 11.0-15.0 [facility] Comment on above: Performed By: #### C BC #### [facility] [address] [place] [address] Dr. Roney Disla Hematocrit (Bld) [Volume fraction] 39.3 % Normal 36.0-48.0 [facility] Comment on above: Performed By: #### C BC #### [facility] [address] [place] [address] Dr. Roney Disla Hemoglobin (Bld) [Mass/Vol] 13.0 g/dL Normal 12.0-16.0 [facility] Comment on above: Performed By: #### C BC #### [facility] [address] [place] [address] Dr. Roney Disla IG # 0.02 10e3/ul Normal 0.00-0.03 [facility] Comment on above: Performed By: #### C BC #### [facility] [address] [place] [address] Dr. Roney Disla IG % 0.2 % Normal 0.0-0.5 [facility] Comment on above: Performed By: #### C BC #### [facility] [address] [place] [address] Dr. Roney Disla LYMPH # 2.5 103/ul Normal 1.2-3.8 [facility] Comment on above: Performed By: #### C BC #### [facility] [address] [place] [address] Dr. Roney Disla Lymphocytes/100 WBC (Bld) 30.9 % Normal 20.5-60.0 [facility] Comment on above: Performed By: #### C BC #### [facility] [address] [place] [address] Dr. Roney Disla MANUAL DIFF REQ NO Normal [facility] Comment on above: Performed By: #### C BC #### [facility] [address] [place] [address] Dr. Roney Disla MCH (RBC) [Entitic mass] 29.1 pg Normal 26.7-34.0 [facility] Comment on above: Performed By: #### C BC #### [facility] [address] [place] [address] Dr. Roney Disla MCHC (RBC) [Mass/Vol] 33.1 g/dL Normal 29.9-35.2 [facility] Comment on above: Performed By: #### C BC #### [facility] [address] [place] [address] Dr. Roney Disla MCV (RBC) [Entitic vol] 88.1 fL Normal 81.0-99.0 [facility] Comment on above: Performed By: #### C BC #### [facility] [address] [place] [address] Dr. Roney Disla MONO # 0.6 103/ul Normal 0.3-0.8 [facility] Comment on above: Performed By: #### C BC #### [facility] [address] [place] [address] Dr. Roney Disla Monocytes/100 WBC (Bld) 7.0 % Normal 1.7-12.0 [facility] Comment on above: Performed By: #### C BC #### [facility] [address] [place] [address] Dr. Roney Disla NEUT # 4.8 103/ul Normal 1.4-6.5 [facility] Comment on above: Performed By: #### C BC #### [facility] [address] [place] [address] Dr. Roney Disla Neutrophils/100 WBC (Bld) 60.0 % Normal 43.0-75.0 [facility] Comment on above: Performed By: #### C BC #### [facility] [address] [address] [address] Roney Disla Platelet mean volume (Bld) [Entitic vol] 9.8 fL Normal 9.5-13.5 [facility] Comment on above: Performed By: #### C BC #### [facility] [address] [address] [address] Roney Disla PLT 299 103/ul Normal 150-450 [facility] Comment on above: Performed By: #### C BC #### [facility] [address] [address] [address] Roney Disla RBC 4.46 106/ul Normal 4.20-5.40 [facility] Comment on above: Performed By: #### C BC #### [facility] [address] [address] [address] Roney Disla WBC 8.1 103/ul Normal 4.0-11.0 [facility] Comment on above: Performed By: #### C BC #### [facility] [address] [address] [address] Roney Disla GLYCOHEMOGLOBIN A1Con 2021 ADA RECOMMENDATION SEE BELOW Normal [facility] Comment on above: Result Comment: ADA RECOMMENDED LIMIT 4.0 - 6.0 ADA THERAPEUTIC TARGET < 7.0 ACTION SUGGESTED > 7.0 Performed By: #### A 1C ####[facility] [id number] [address]Dr. Roney Disla Glucose [Mass/Vol] 108 mg/dL Normal [facility] Comment on above: Performed By: #### A 1C ####[facility] [id number] [address]Dr. Roney Disla HbA1c (Bld) [Mass fraction] 5.4 % Normal 4.5-6.2 [facility] Comment on above: Performed By: #### A 1C ####[facility] [id number] [address]Dr. Roney Disla LIPID PROFILEon 11-02-2021 CHOL-HDL RATIO NORM SEE BELOW Normal [facility] Comment on above: Result Comment: 3.3 - 4.4 LOW RISK 4.4 - 7.1 AVERAGE RISK 7.1 - 11.0 MODERATE RISK >11.0 HIGH RISK Performed By: #### T SH, CMP, LIPID #### [facility] [address] [address] [address] Roney Disla Cholesterol [Mass/Vol] 175 mg/dL Normal <=200 [facility] Comment on above: Performed By: #### T SH, CMP, LIPID #### [facility] [address] [address] [address] Roney Disla Cholesterol in HDL [Mass/Vol] 59 mg/dL Normal 40-60 [facility] Comment on above: Performed By: #### T SH, CMP, LIPID #### [facility] [address] [address] [address] Roney Disla Cholesterol in LDL [Mass/Vol] 104.8 mg/dL Normal [facility] Comment on above: Performed By: #### T SH, CMP, LIPID #### [facility] [address] [address] [address] Roney Disla Cholesterol.total/Ch olesterol in HDL [Mass ratio] 3.0 {ratio} Normal [facility] Comment on above: Performed By: #### T SH, CMP, LIPID #### [facility] [address] [address] [address] Roney Disla HDL NORMAL > or = 60 mg/dl - LO W CARDIOVASCULAR RISK <40 mg/dl - HIGH CARDIOVASCULAR RISK Normal [facility] Comment on above: Performed By: #### T SH, CMP, LIPID #### [facility] [address] [address] [address] Roney Disla LDL CALC NORMAL SEE BELOW Normal [facility] Comment on above: Result Comment: <100 mg/dl OPTIMAL 100 - 129 mg/dl NEAR OR ABOVE OPTIMAL 130 - 159 mg/dl BORDERLINE HIGH 160 - 189 mg/dl HIGH >190 mg/dl VERY HIGH Performed By: #### T SH, CMP, LIPID #### [facility] [address] [address] [address] Roney Disla Triglyceride [Mass/Vol] 56 mg/dL Normal <=150 [facility] Comment on above: Performed By: #### T SH, CMP, LIPID #### [facility] [address] [address] [address] Roney Disla VLDL CALC 11.2 mg/dL Normal [facility] Comment on above: Performed By: #### T SH, CMP, LIPID #### [facility] [address] [address] [address] Roney Disla PROF 14(COMP METB)on 022 Albumin [Mass/Vol] 4.1 g/dL Normal 3.4-5.0 [facility] Comment on above: Performed By: #### T SH, CMP, LIPID #### [facility] [facility] [address] [place] [address] Dr. Roney Disla Albumin/Globulin [Mass ratio] 1.1 {ratio} [facility] Comment on above: Performed By: #### T SH, CMP, LIPID #### [facility] [address] [place] [address] Dr. Roney Disla ALP [Catalytic activity/Vol] 62 U/L Normal 46-116 [facility] Comment on above: Performed By: #### T SH, CMP, LIPID #### [facility] [address] [place] [address] Dr. Roney Disla ALT [Catalytic activity/Vol] 28 U/L Normal 14-59 [facility] Comment on above: Performed By: #### T SH, CMP, LIPID #### [facility] [address] [address] [address] Roney Disla Anion gap [Moles/Vol] 9.4 mmol/L Normal [facility] Comment on above: Performed By: #### T SH, CMP, LIPID #### [facility] [address] [place] [address] Dr. Roney Disla AST [Catalytic activity/Vol] 16 U/L Normal 15-37 [facility] Comment on above: Performed By: #### T SH, CMP, LIPID #### [facility] [address] [address] [address] Roney Disla Bilirubin [Mass/Vol] 0.3 mg/dL Normal 0.2-1.0 [facility] Comment on above: Performed By: #### T SH, CMP, LIPID #### [facility] [address] [address] [address] Roney Disla Calcium [Mass/Vol] 9.7 mg/dL Normal 8.5-10.1 [facility] Comment on above: Performed By: #### T SH, CMP, LIPID #### [facility] [address] [address] [address] Roney Disla Chloride [Moles/Vol] 102 mmol/L Normal 98-107 [facility] Comment on above: Performed By: #### T SH, CMP, LIPID #### [facility] [address] [place] [address] Dr. Roney Disla CO2 [Moles/Vol] 31.0 mmol/L Normal 21.0-32.0 [facility] Comment on above: Performed By: #### T SH, CMP, LIPID #### [facility] [address] [place] [address] Dr. Roney Disla Creatinine [Mass/Vol] 0.64 mg/dL Normal 0.55-1.02 [facility] Comment on above: Performed By: #### T SH, CMP, LIPID #### [facility] [address] [place] [address] Dr. Roney Disla EGFR-AF CAMBODIAN >60 Normal >=[address] [facility] Comment on above: Performed By: #### T SH, CMP, LIPID #### [facility] [address] [place] [address] Dr. Roney Disla EGFR-NON AF CAMBODIAN >60 Normal >=60 [facility] Comment on above: Performed By: #### T SH, CMP, LIPID #### [facility] [address] [place] [address] Dr. Roney Disla Globulin (S) [Mass/Vol] 3.6 g/dL Normal [facility] Comment on above: Performed By: #### T SH, CMP, LIPID #### [facility] [address] [place] [address] Dr. Roney Disla Glucose [Mass/Vol] 86 mg/dL Normal 74-106 [facility] Comment on above: Performed By: #### T SH, CMP, LIPID #### [facility] [address] [place] [address] Dr. Roney Disla Potassium [Moles/Vol] 4.4 mmol/L Normal 3.5-5.1 [facility] Comment on above: Performed By: #### T SH, CMP, LIPID #### [facility] [address] [place] [address] Dr. Roney Disla Protein [Mass/Vol] 7.7 g/dL Normal 6.4-8.2 [facility] Comment on above: Performed By: #### T SH, CMP, LIPID #### [facility] [address] [place] [address] Dr. Roney Disla Sodium [Moles/Vol] 138 mmol/L Normal 136-145 [facility] Comment on above: Performed By: #### T SH, CMP, LIPID #### [facility] [address] [place] [address] Dr. Roney Disla Urea nitrogen [Mass/Vol] 18.0 mg/dL Normal 7.0-18.0 [facility] Comment on above: Performed By: #### T SH, CMP, LIPID #### [facility] [address] [place] [address] Dr. Roney Disla Urea nitrogen/Creatinine [Mass ratio] 28.1 mg/mg Normal [facility] Comment on above: Performed By: #### T SH, CMP, LIPID #### [facility] [address] [place] [address] Dr. Roney Disla TSHon 11-02-2021 TSH 1.335 uIU/mL Normal 0.358-3.740 [facility] Comment on above: Performed By: #### T SH, CMP, LIPID #### [facility] [address] [place] [address] Dr. Roney Disla TSH RANGE SEE BELOW Normal [facility] Comment on above: Result Comment: <0.3 4 UIU/ml HYPERTHYROID 0.34-5.60 UIU/ml EUTHYROID >5.60 UIU/ml HYPOTHYROID Performed By: #### T SH, CMP, LIPID #### [facility] [address] [place], [place] [address] Dr. Roney Disla Operative Reporton Operative Report MR#: [id number] [facility] Pt. Name: Rosa Robb Room #: 0C [...] is a 45-year-old female who presented to me with chronic diarrhea. Decision was made to [...] Andrade MD Date Trans: 12/19/2020 09:59 A/israel [id number] Normal [facility] POC URINE PREGNANCYon 2020 Beta HCG ( test) Ql (U) Negative Normal NEGATIVE [facility] Comment on above: Performed By: #### [id number] #### [facility] [address] *SARS-CoV-2 COVID-19on 12-16 SARS-CoV-2 (COVID-19) RNA CHAY+probe Ql (Unsp spec) Not detected Normal Not Detected [facility] Comment on above: Order Comment: The A ptima SARS-CoV-2 assay is a nucleic acid amplification test intended for the qualitative detection of RNA from SARS-CoV-2 isolated and purified from nasopharyngeal (INTERMODAL TRUCK DRIVER),oropharyngeal (OP), nasal swab, sputum, and bronchoalveolar lavage (BAL) specimens from patients with signs and symptoms of infection who are suspected of COVID-19. Results are for the identification of SARS-CoV-2 RNA. The SARS-CoV-2 RNA is generally detectable during the acute phase of infection. The Aptima SARS-CoV-2 Assay on the [employer] and [employer] Fusion system is intended for use by laboratory personnel specifically instructed and trained in the operation of the [employer] and [employer] Fusion system. The Aptima SARS-CoV-2 assay is [...] information. Performed By: #### 3 [id number] #### [facility] [address] Vital Signs Date Time Vital Sign Value Performing Clinician Faci lity 08-04-2024 14:57-0500 Body mass index (BMI) [Ratio] 29.37 kg/m2 Connie Arceo INTERMODAL TRUCK DRIVER Work Phone: [facility] 08-04-2024 14:57-0500 Body temperature 98.49 [degF] Connie Arceo INTERMODAL TRUCK DRIVER Work Phone: [facility] 08-04-2024 14:57-0500 Body weight 72.85 kg Connie Barnesz INTERMODAL TRUCK DRIVER Work Phone: [facility] 08-04-2024 14:57-0500 Diastolic blood pressure 82 mm[Hg] Connie Barnesz INTERMODAL TRUCK DRIVER Work Phone: [facility] 08-04-2024 14:57-0500 Heart rate 84 /min Conniemanish Barnesz INTERMODAL TRUCK DRIVER Work Phone: [facility] 08-04-2024 14:57-0500 Respiratory rate 18 /min Connie Barnesz INTERMODAL TRUCK DRIVER Work Phone: [facility] 08-04-2024 14:57-0500 SaO2% (BldA) [Mass fraction] 98 % Connie Barnesz INTERMODAL TRUCK DRIVER Work Phone: [facility] 08-04-2024 14:57-0500 Systolic blood pressure 118 mm[Hg] Connie Fernandesholz INTERMODAL TRUCK DRIVER Work Phone: [facility] 07-26-2024 14:17-0500 Body mass index (BMI) [Ratio] 30.18 kg/m2 Dori León PA Work Phone: [facility] 07-26-2024 14:17-0500 Body weight 74.84 kg Dori León PA Work Phone: [facility] 07-26-2024 14:17-0500 Diastolic blood pressure 76 mm[Hg] Dori León PA Work Phone: [facility] 07-26-2024 14:17-0500 Systolic blood pressure 124 mm[Hg] Dori León PA Work Phone: [facility] 03-02-2024 14:12-0400 Body height 157.5 cm Connie Domholz INTERMODAL TRUCK DRIVER Work Phone: [facility] 03-02-2024 14:12-0400 Body mass index (BMI) [Ratio] 28.75 kg/m2 Conniemanish Fernandeshaileez INTERMODAL TRUCK DRIVER Work Phone: [facility] 03-02-2024 14:12-0400 Body temperature 97.81 [degF] Connie Domholz INTERMODAL TRUCK DRIVER Work Phone: [facility] 03-02-2024 14:12-0400 Body weight 71.31 kg Connie Aichholz INTERMODAL TRUCK DRIVER Work Phone: [facility] 03-02-2024 14:12-0400 Diastolic blood pressure 82 mm[Hg] Connie Aichholz INTERMODAL TRUCK DRIVER Work Phone: [facility] 03-02-2024 14:12-0400 Heart rate 77 /min Connie Nhunghholz INTERMODAL TRUCK DRIVER Work Phone: [facility] 03-02-2024 14:12-0400 Respiratory rate 18 /min Connie Nhunghholz INTERMODAL TRUCK DRIVER Work Phone: [facility] 03-02-2024 14:12-0400 SaO2% (BldA) [Mass fraction] 96 % Connie Aichholz INTERMODAL TRUCK DRIVER Work Phone: [facility] 03-02-2024 14:12-0400 Systolic blood pressure 128 mm[Hg] Connie Aichholz INTERMODAL TRUCK DRIVER Work Phone: [facility] Healthcare Encounters Encounter Date Encounter Type Care Provider Facility Start: 08-04-2024 End: 08-04-2024 Office outpatient visit 15 minutes Connie Marielos INTERMODAL TRUCK DRIVER Work Phone: [facility] Comment on above: Hypothyroidism, unsp ecified type (CMS/HCC) (Primary Dx); Other supraventricular tachycardia (CMS/HCC); Primary insomnia; Overweight (BMI 25.0-29.9) Start: 08-04-2024 End: 08-04-2024 ambulatory CONNIE DOMHOLZ Not Available Start: 08-04-2024 End: 08-04-2024 Bamboo flowsheet Connie Marielos INTERMODAL TRUCK DRIVER Work Phone: [facility] Start: 08-04-2024 End: 08-04-2024 Bamboo flowsheet Connie Arceo INTERMODAL TRUCK DRIVER Work Phone: [facility] Start: 08-02-2024 End: 08-02-2024 Bamboo flowsheet Sravanthi Cole TELEPHOTO ENGINEER-CHEMICAL PROCESS OPERATOR Work Phone: [facility] Start: 08-02-2024 End: 08-02-2024 Bamboo flowsheet Sravanthi Gilman Felter TELEPHOTO ENGINEER-CHEMICAL PROCESS OPERATOR Work Phone: [facility] Start: 08-02-2024 End: 08-02-2024 Office outpatient visit 25 minutes Sravanthi Reynosoer TELEPHOTO ENGINEER-CHEMICAL PROCESS OPERATOR Work Phone: [facility] Comment on above: Other rosacea; Melanocytic nevus of trunk; Lentigines; Seborrheic keratosis; Other seborrheic dermatitis; Actinic keratosis; Seborrheic keratosis, inflamed; Patient-requested procedure; Capillary angioma; History of atypical nevus; Family history of malignant melanoma Start: 08-02-2024 End: 08-02-2024 ambulatory SRAVANTHI COLE Not Available Start: 07-26-2024 End: 07-26-2024 ambulatory DORI LEÓN Not Available Start: 07-26-2024 End: 07-26-2024 Office outpatient visit 15 minutes Dori León PA Work Phone: [facility] Comment on above: Weight gain; Encounter for weight management Start: 06-10-2024 End: 06-10-2024 Refill Connie Arceo INTERMODAL TRUCK DRIVER Work Phone: [facility] Comment on above: Hypothyroidism, unsp ecified type (CMS/HCC) Start: 03-02-2024 End: 03-02-2024 Patient encounter status Connie Arceo INTERMODAL TRUCK DRIVER Work Phone: [facility] Start: 03-02-2024 End: 03-02-2024 Periodic preventive med est patient 40-64yrs Connie Arceo INTERMODAL TRUCK DRIVER Work Phone: [facility] Comment on above: Encounter for wellne ss examination in adult (Primary Dx); Other supraventricular tachycardia (CMS/HCC); Hypothyroidism, unspecified type (CMS/HCC); Insomnia, unspecified; Insomnia Start: 03-02-2024 End: 03-02-2024 ambulatory CONNIE NHUNGPepitoHOLZ Not Available Start: 03-02-2024 End: 03-02-2024 Bamboo flowsheet Connie Domholz INTERMODAL TRUCK DRIVER Work Phone: [facility] Start: 03-02-2024 End: 03-02-2024 Bamboo flowsheet Connie Aichholz INTERMODAL TRUCK DRIVER Work Phone: [facility] Start: 02-26-2024 End: 02-26-2024 Clinisync Result Encounter Connie Barnesz INTERMODAL TRUCK DRIVER Work Phone: [facility] Unsolicited Start: 02-26-2024 End: 02-26-2024 Clinisync Result Encounter Connie Barnesz INTERMODAL TRUCK DRIVER Work Phone: [facility] Unsolicited Start: 02-17-2024 End: 02-17-2024 Patient encounter status Connie Barnesz INTERMODAL TRUCK DRIVER Work Phone: [facility] Start: 02-17-2024 End: 02-17-2024 Refill Connie Domholz INTERMODAL TRUCK DRIVER Work Phone: [facility] Comment on above: Encounter for wellne ss examination in adult (Primary Dx); Hypothyroidism (CMS/HCC); Insomnia, unspecified; Insomnia Start: 09-11-2023 End: 09-11-2023 ambulatory SRAVANTHI A FELTER Not Available Start: 08-04-2023 Refill Connie Aichholz INTERMODAL TRUCK DRIVER Work Phone: [facility] Comment on above: Hypothyroidism, unsp ecified (CMS/HCC); Hypothyroidism (CMS/HCC) Start: 07-31-2023 Bamboo flowsheet Sravanthi A Fel ter TELEPHOTO ENGINEER-CHEMICAL PROCESS OPERATOR Work Phone: [facility] Start: 07-31-2023 Bamboo flowsheet Sravanthi A Fel ter TELEPHOTO ENGINEER-CHEMICAL PROCESS OPERATOR Work Phone: [facility] Start: 07-31-2023 End: 07-31-2023 Office outpatient visit 25 minutes Sravanthi Cole [facility] Work Phone: [facility] Comment on above: Melanocytic nevus of trunk (Primary Dx); Rash and other nonspecific skin eruption; Lentigines; Angioma of skin; Neoplasm of unspecified behavior of bone, soft tissue, and skin; Seborrheic keratosis, inflamed; History of nevus excision Start: 05-15-2022 End: 08-24-[address] HECTOR GOODEN Facility:[facility] Start: 01-18-2022 End: 01-18-[address] CHUN GUO . Facility:[facility] Start: 01-15-2022 Encounter for other preprocedural examination DR CHUN GUO . [facility] Start: 01-15-2022 Encounter for prepro cedural cardiovascular examination DR CHUN GUO . [facility] Start: 01-15-2022 Encounter for prepro cedural laboratory examination DR CHUN GUO . [facility] Start: 01-11-2022 End: 01-12-[address] CHUN GUO . Facility:[facility] Start: 01-11-2022 End: 01-12-2022 Encounter for preprocedural laboratory examination DR CHUN GUO . Facility:[facility] Start: 12-13-2021 End: 12-14-2021 ambulatory MACKENZIE ARCEO Facility:[facility] Start: 12-11-2021 End: 12-12-[address] CHUN GUO . Facility:[facility] Start: 11-07-2021 Encounter for genera l adult medical examination without abnormal findings MACKENZIE ARCEO [facility] Start: 11-02-2021 End: 11-03-2021 ambulatory MACKENZIE ARCEO Facility:[facility] Start: 11-02-2021 End: 11-03-2021 Encounter for general adult medical examination without abnormal findings MACKENZIE ARCEO Facility:[facility] Start: 10-25-2021 End: 10-26-[address] HERNANDEZ LISTED REQUEST Facility:[facility] Start: 12-19-2020 End: 12-20-2020 ambulatory DEEPTHI ANDRADE Facility:[facility] Procedures Date Procedure Procedure Detail Performing Clinician Start: 08-02-2024 End: 08-02-2024 CRYOTHERAPY SKIN LESION Sravanthi Cole TELEPHOTO ENGINEER-CHEMICAL PROCESS OPERATOR Work Phone: Start: 02-26-2024 ALL CBC WITH AUTO DIFF Connie Arceo INTERMODAL TRUCK DRIVER Work Phone: Start: 01-07-2024 Mammography Connie mccarty INTERMODAL TRUCK DRIVER Work Phone: Start: 07-31-2023 CRYOTHERAPY SKIN LESION Sravanthi Cole TELEPHOTO ENGINEER-CHEMICAL PROCESS OPERATOR Work Phone: Start: 07-31-2023 SKIN / NAIL BIOPSY Kathleenmanish Reynosoer TELEPHOTO ENGINEER-CHEMICAL PROCESS OPERATOR Work Phone: Start: 01-22-2021 Colonoscopy Connie Jim mccarty INTERMODAL TRUCK DRIVER Work Phone: Start: 12-19-2020 ANES LWR INTST NDSC NOS DEEPTHI ANDRADE Start: 12-19-2020 Colonoscopy w/biopsy single/multiple DEEPTHI ANDRADE H/O: surgery History of nevus excision Sravanthi Cole TELEPHOTO ENGINEER-CHEMICAL PROCESS OPERATOR Work Phone: Plan of Treatment Date Care Activity Detail Author Start: 05-13-2028 Screening for malignant neoplasm of cervix [facility] Start: 01-22-2026 Screening for malignant neoplasm of colon [facility] Start: 08-02-2025 End: 08-02-2025 Patient encounter procedure 08/02/2025 9:20 AM EST Office Visit [facility] [address] [place] [address] Sravanthi Cole, TELEPHOTO ENGINEER-CHEMICAL PROCESS OPERATOR [address] [place] [address] [facility] Start: 01-27-2025 End: 01-27-2025 Patient encounter procedure 01/27/2025 3:20 PM EDT Office Visit [facility] [address] [place] [phone] Connie Arceo NP [address] [place] [id number] [facility] Start: 01-06-2025 Screening for malignant neoplasm of breast Mammogram [facility] Start: 08-04-2024 End: 08-04-2024 Patient encounter procedure [facility] Comment on above: Other supraventricular tachycardia (CMS/ HCC) (Primary Dx); Hypothyroidism, unspecified type (CMS/HCC); Primary insomnia Start: 08-04-2024 End: 08-04-2025 Thyrotropin [Units/volume] in Serum or Plasma TSH Lab Routine Hypothyroidism, unspecified type (CMS/HCC) Expected: 08/04/2024 (Approximate), Expires: 08/04/2025 [facility] Work Phone: Comment on above: Expected: 08/04/2024 (Approximate), Expi res: 08/04/2025 Start: 08-04-2024 End: 08-04-2025 Thyroxine (T4) free [Mass/volume] in Serum or Plasma T4, free Lab Routine Hypothyroidism, unspecified type (CMS/HCC) Expected: 08/04/2024 (Approximate), Expires: 08/04/2025 [facility] Comment on above: Expected: 08/04/2024 (Approximate), Expi res: 08/04/2025 Start: 08-02-2024 End: 08-02-2024 Patient encounter procedure [facility] Comment on above: Arrived Start: 05-04-2024 End: 05-04-2024 Patient encounter procedure 05/04/2024 2:20 PM EST Office Visit [facility] [address] [place] [address] Connie Arceo NP [address] [place] [address] [facility] Start: 04-22-2024 Influenza vaccination Influenza Vaccine (#1) [facility] Comment on above: Postponed from 02/22/2024 (Patient Does Not Have Time) Start: 03-02-2024 End: 03-02-2024 Patient encounter procedure [facility] Comment on above: Other supraventricular tachycardia (CMS/ HCC) Start: 02-22-2024 Influenza vaccination Influenza Vaccine (#1) [facility] Start: 02-17-2024 End: 02-16-2025 CBC W Auto Differential panel - Blood CBC and differential Lab Routine Encounter for wellness examination in adult Expected: 02/17/2024 (Approximate), Expires: 02/16/2025 [facility] Work Phone: Comment on above: Expected: 02/17/2024 (Approximate), Expi res: 02/16/2025 Start: 02-17-2024 End: 02-16-2025 Comprehensive metabolic 2000 panel - Serum or Plasma Comprehensive metabolic panel Lab Routine Encounter for wellness examination in adult Expected: 02/17/2024 (Approximate), Expires: 02/16/2025 [facility] Comment on above: Expected: 02/17/2024 (Approximate), Expi res: 02/16/2025 Start: 02-17-2024 End: 02-16-2025 Lipid 1996 panel - Serum or Plasma Lipid panel Lab Routine Encounter for wellness examination in adult Expected: 02/17/2024 (Approximate), Expires: 02/16/2025 [facility] Comment on above: Expected: 02/17/2024 (Approximate), Expi res: 02/16/2025 Start: 02-17-2024 End: 02-16-2025 Thyrotropin [Units/volume] in Serum or Plasma TSH Lab Routine Encounter for wellness examination in adult Expected: 02/17/2024 (Approximate), Expires: 02/16/2025 [facility] Comment on above: Expected: 02/17/2024 (Approximate), Expi res: 02/16/2025 Start: 09-11-2023 End: 09-11-2023 Patient encounter procedure 09/11/2023 9:40 AM EDT Office Visit [facility] [address] [place] [phone] Sravanthi Cole APRN-CHEMICAL PROCESS OPERATOR [address] [place] [address] [facility] Start: 07-31-2023 End: 07-31-2023 Patient encounter procedure 07/31/2023 9:05 AM EST Office Visit [facility] [address] [place] [phone] Sravanthi Cole TELEPHOTO ENGINEER-CHEMICAL PROCESS OPERATOR [address] [place] [address] Arrived [facility] Comment on above: Arrived Start: 02-21-2023 Influenza vaccination Influenza Vaccine (#1) [facility] Start: 2015 Screening for malignant neoplasm of breast Mammogram [facility] Start: 08-30-2005 Screening for malignant neoplasm of cervix [facility] Start: 08-30-1996 Screening for malignant neoplasm of cervix Pap Smear [facility] Start: 1975 Screening for malignant neoplasm of colon [facility] Dermatopathology exam Dermatopat hology exam Pathology and Cytology Timed Neoplasm of unspecified behavior of bone, soft tissue, and skin Release Upon Ordering for 1 Occurrences starting 07/31/2023 [facility] Work Phone: Comment on above: Release Upon Ordering for 1 Occurrences starting 07/31/2023 Immunizations Immunization Date Immunization Notes Care Provider Aaron regalado 04-22-2024 influenza virus vacc ine, unspecified formulation Connie Arceo INTERMODAL TRUCK DRIVER Work Phone: [facility] 03-12-2013 influenza virus vacc ine, whole virus Connie Arceo INTERMODAL TRUCK DRIVER Work Phone: [facility] 03-12-2013 influenza virus vacc ine, unspecified formulation Sravanthi Cole TELEPHOTO ENGINEER-CHEMICAL PROCESS OPERATOR Work Phone: [facility] Payers Date Payer Category Payer [facility] Memb er Subscriber Plan / Payer (Effective 2022-Present) Name: Rosa Robb Member ID: [id number] Relation to Subscriber: Self Name: Rosa Robb Subscriber ID: [id number] Payer ID: Not on file Type: Not on file Address: [address] [place] [address] [id number] 2022 Unknown BCBS BCBS [id number] 2022-Present [phone] [address] [place] [address] [id number] 2022 Unknown [id number] 2019 Unknown [id number] 1975 Unknown [id number] [id number]. 647 1975 Unknown [id number] 2.16.840.1.777493.3.579.2. 593 1975 Unknown [id number] 2.16.840.1.363733.3.579.2. 593 1975 Unknown [id number] 2.16.840.1.487533.3.579.2. 593 1975 Unknown [id number] 2.16.840.1.864824.3.579.2. 593 1975 Unknown [id number] 2.16.840.1.427706.3.579.2. 593 1975 Unknown [id number] 2.16.840.1.483611.3.579.2. 593 1975 Unknown [id number] 2.16.840.1.256443.3.579.2. 1259 1975 Unknown [id number] 2.16.840.1.304845.3.579.2. 1259 1975 Unknown [id number] 2.16.840.1.072964.3.579.2. 1259 1975 Unknown [id number] 2.16.840.1.101709.3.579.2. 1259 1975 Unknown [id number] 2.16.840.1.901692.3.579.2. 1259 1959 Self-pay [id number] Unknown [id number] Unknown [id number] [id number]. 593 Social History Date Type Detail Facility Start: 05-11-2023 End: 07-31-2023 Tobacco smoking status WVIS Never smoked tobacco [facility] Start: 05-11-2023 End: 03-01-2024 History of Social function [facility] Start: 05-11-2023 End: 03-01-2024 Tobacco use panel [facility] Start: 1975 Sex Assigned At Not on file [facility] Start: 05-12-2023 Gender identity Identifies as female gender (finding) [facility] Start: 07-31-2023 Tobacco use and exposure Smoke less tobacco non-user [facility] How often do you nee d to have someone help you when you read instructions, pamphlets, or other written material from your doctor or pharmacy [SILS] Never [facility] Do you belong to any clubs or organizations such as caodaism groups, unions, fraternal or athletic groups, or school groups? No [facility] Are you now , , , , never or living with a partner? [facility] How often to you hav e a drink containing alcohol? Monthly or less [facility] How often do you hav e 6 or more drinks on 1 occasion? Never [facility] Do you feel stress - tense, restless, nervous, or anxious, or unable to sleep at night because your mind is troubled all the time - these days [OSQ] To some extent [facility] (I/We) worried wheth er (my/our) food would run out before (I/we) got money to buy more. Never true [facility] Start: 08-02-2024 End: 08-04-2024 Alcoholic beverage intake Defer [facility] Clinical Notes 01-18-2022 to 08-04-2024 Connie Arceo NP - 08/04/2024 3:34 PM Roxi Arceo NP - 08/04/2024 3:00 PM Roxi Arceo NP - 08/04/2024 7:16 AM Roxi Arceo NP - 08/04/2024 7:16 AM ESTPatient Instructions Note Date & Type Note Facility 08-04-2024 History of Presen t illness Narrative Associated Problem(s): Overweight (BMI 25.0-29.9) Is currently on adipex Rosa Robb is a 48 y.o. female presents with chief complaint of No chief complaint on file. HPI: Feels better on higher dose of levo at 88mcg Thyroid Problem Presents for follow-up visit. Symptoms include weight gain. Patient reports no anxiety, constipation (occ), diarrhea, dry skin, fatigue, hair loss, heat intolerance, hoarse voice, palpitations or tremors. The symptoms have been stable. SUBJECTIVE: MEDICATIONS: Current Outpatient Medications Medication Instructions fluocinonide (Lidex) 0.05 % external solution Apply to affected areas on the scalp, up to twice a day when flared, 30 day supply Levonorgestrel (Mirena, 52 MG,) 20 MCG/DAY intrauterine device Intrauterine levothyroxine (SYNTHROID, LEVOXYL) 88 mcg, Oral, Daily before breakfast phentermine (ADIPEX-P) 37.5 mg, Oral, Daily before breakfast traZODone (DESYREL) 50 mg, Oral, Nightly ALLERGIES: Allergies Allergen Reactions Prochlorperazine Rash Compazine REVIEW OF SYMPTOMS: Review of Systems Constitutional: Positive for weight gain. Negative for appetite change, chills, fatigue and fever. HENT: Negative for congestion, ear pain, hoarse voice and sore throat. Eyes: Negative for pain, discharge, redness and visual disturbance. Respiratory: Negative for cough, shortness of breath and wheezing. Cardiovascular: Negative for chest pain, palpitations and leg swelling. Gastrointestinal: Negative for abdominal pain, blood in stool, constipation (occ), diarrhea, nausea and vomiting. Genitourinary: Negative for difficulty urinating, dysuria and frequency. Musculoskeletal: Negative for arthralgias, back pain, joint swelling and myalgias. Skin: Negative for rash and wound. Neurological: Negative for dizziness, tremors, seizures, syncope and headaches. Psychiatric/Behavioral: Negative for behavioral problems, self-injury and suicidal ideas. The patient is not nervous/anxious. Hematological: Does not bruise/bleed easily. Endocrine: Negative for heat intolerance, polydipsia, polyphagia and polyuria. Allergic/Immunologic: Negative for environmental allergies and food allergies. PAST MEDICAL HISTORY Past Medical History: Diagnosis Date Atypical nevi Hypothyroidism (CMS/HCC) 08/04/2023 Insomnia Past Surgical History: Procedure Laterality Date SKIN BIOPSY family history includes Melanoma in her mother. OBJECTIVE: Visit Vitals BP 118/82 (BP Location: Left arm, Patient Position: Sitting, BP Cuff Size: Adult long) Pulse 84 Temp 98.5 F (Temporal) Resp 18 Wt 160 lb 9.6 oz SpO2 98% BMI 29.37 kg/m OB Status No Periods Smoking Status Never BSA 1.78 m Physical Exam Vitals and nursing note reviewed. Constitutional: General: She is not in acute distress. Appearance: Normal appearance. HENT: Head: Normocephalic and atraumatic. Right Ear: External ear normal. Left Ear: External ear normal. Nose: Nose normal. Mouth/Throat: Mouth: Mucous membranes are moist. Eyes: Extraocular Movements: Extraocular movements intact. Conjunctiva/sclera: Conjunctivae normal. Neck: Vascular: No carotid bruit. Cardiovascular: Rate and Rhythm: Normal rate and regular rhythm. Pulses: Normal pulses. Heart sounds: Normal heart sounds. Pulmonary: Effort: Pulmonary effort is normal. No respiratory distress. Breath sounds: Normal breath sounds. No wheezing or rhonchi. Abdominal: General: Bowel sounds are normal. There is no distension. Palpations: Abdomen is soft. There is no mass. Tenderness: There is no abdominal tenderness. Musculoskeletal: General: Normal range of motion. Cervical back: Normal range of motion and neck supple. Right lower leg: No edema. Left lower leg: No edema. Skin: General: Skin is warm and dry. Capillary Refill: Capillary refill takes 2 to 3 seconds. Findings: No rash. Neurological: General: No focal deficit present. Mental Status: She is alert and oriented to person, place, and time. Psychiatric: Mood and Affect: Mood normal. Behavior: Behavior normal. Thought Content: Thought content normal. Judgment: Judgment normal. ASSESSMENT AND PLAN: No follow-ups on file. Problem List Items Addressed This Visit Hypothyroidism (CMS/HCC) Current meds: levo at 88mcg Check labs yearly and prn dose changes or changes in symptoms Relevant Orders TSH T4, free Other supraventricular tachycardia (CMS/HCC) - Primary Meds: none Insomnia, unspecified Uses trazodone prn Associated Problem(s): Insomnia, unspecified Uses trazodone prn Associated Problem(s): Hypothyroidism (CMS/HCC) Current meds: levo at 88mcg Check labs yearly and prn dose changes or changes in symptoms Associated Problem(s): Other supraventricular tachycardia (CMS/HCC) Meds: none documented in this encounter [facility] 08-04-2024 Instructions Connie Arceo NP - 08/04/2024 3:00 PM EST Continue current thyroid dose Check labs Next colonoscopy: 2025 documented in this encounter [facility] 08-02-2024 History of Presen t illness Narrative Skin Check Location: Patient requests a full body skin examination Dermatologic history: history of atypical mole(s)-- Left forearm. Family history of Melanoma- Mom Last visit: 1 year ago Established patient Follow up Diagnosis: Seborrheic Dermatitis Location: Scalp Symptoms: None Status: Clear today secondary to treatment Current treatment: Fluocinonide 0.05% solution bid/prn. Does not need refills today Lesions: Location: Armpits, and face Duration: Year Quality: Asymptomatic Modifying factors: None Associated symptoms: Bumps, skin tags Treatments: None Would like to discuss cosmetic removal All pertinent medical history, medications, and allergies were reviewed. General Exam: alert, oriented to person, place, and time, normal affect, well appearing, accompanied by daughter Scalp, Examined Right leg Examined Head, Face Examined Left leg Examined Neck Examined Right foot Examined Chest Examined Left foot Examined Back Examined Buttocks Examined Abdomen Examined Digits,nails: Examined Right arm Examined Left arm Examined Hands Examined 1. Other rosacea Head - Anterior (Face) Mid face erythema with telangiectasias The patient was informed that rosacea a chronic condition that can be controlled but not cured. The appearance of redness and pimples can often be improved with a low dose antibiotic or topical medications. The patient was informed that telangiectasia is common and can be improved with laser treatment. Recommend OTC Ivermectin cream (can be found at [facility] 2. Melanocytic nevus of trunk Scattered benign appearing, regular brown to light brown melanocytic papules and macules with similar morphology Counseled regarding these benign growths. Rarely, a nevus can develop into malignant melanoma, so any changing nevi should be promptly re-evaluated. 3. Lentigines Scattered mcmanus macules in sun-exposed areas. The patient was informed that lentigines are benign pigmented lesions that occur on sun-exposed and sun-damaged skin. No treatment is necessary. Recommended regular use of broad spectrum sunscreen SPF 30 or higher 4. Seborrheic keratosis Stuck on verrucous, mcmanus-brown papules and plaques. Patient was counseled regarding these benign growths. Removal is normally not necessary, but they may be removed if they are symptomatic or for cosmetic reasons. 5. Other seborrheic dermatitis Left Ear, Right Ear Mild scale noted today. Otherwise, clear Discussed that seborrheic dermatitis is a chronic condition that can be controlled but not cured. Continue Fluocinonide 0.05% solution bid/prn for flares, hold when clear. Declines refills today 6. Actinic keratosis Left Zygomatic Area Erythematous scaly papules Patient was counseled regarding these sun-induced growths that can develop into squamous cell carcinoma if left untreated. Discussed treatment with cryotherapy. It was emphasized that any treated lesions that fail to resolve should be re-evaluated. Cryotherapy performed today; see procedure note Diagnosis: Actinic keratosis Indication: Precancerous Location: see skin exam Consent: Verbal consent was obtained and risks were discussed, including, but not limited to risks of scarring, darker or digital marketing specialist pigmentary changes, recurrence, incomplete removal and infection. Method: Liquid nitrogen was used to treat the lesion(s) with two 5-10 second freeze-thaw cycles. Number of lesions treated: 1 Post-procedure instructions: Instructions were given orally and in writing. The office will be contacted if the lesion fails to resolve despite treatment, or if a side effect develops such as abnormal crusting, scabbing, redness or tenderness Cryotherapy, skin lesion - Left Zygomatic Area 7. Seborrheic keratosis, inflamed Right Forehead [place] and brown stuck on verrucous scaly papule [...] limited to risks of scarring, darker or digital marketing specialist pigmentary changes, recurrence, incomplete removal and infection. Method: Liquid nitrogen was used to treat the lesion(s) with two 5-10 second freeze-thaw cycles Number of lesions treated: 1 Post-procedure instructions: Instructions were given orally and in writing. The office will be contacted if the lesion fails to resolve despite treatment, or if a side effect develops such as abnormal crusting, scabbing, redness or tenderness Cryotherapy, skin lesion - Right Forehead 8. Patient-requested procedure Right Axilla Fleshy, skin-colored sessile and pedunculated papules with surrounding erythema The patient was informed that skin tags are benign growths usually found around the neck or in the axillae. Due to symptoms/inflammation, removal performed today, see procedure note. Procedure: Skin tag removal Informed consent: Discussed risks (permanent scarring, infection, pain, bleeding, bruising, redness, and recurrence of the lesion) and benefits of the procedure, as well as the alternatives. She is aware that skin tags are benign lesions, and their removal is often not considered medically necessary. Informed consent was obtained and waiver was signed if needed. The area was prepared and draped in a standard fashion. Cryotherapy removal was performed. A sterile dressing was applied. The patient tolerated procedure well. The patient was instructed on post-op care. Number of lesions removed: 2 40$ cosmetic fee for right axilla 9. Capillary angioma (3) Generalized, Right Buccal Cheek, Right Malar Cheek Scattered suarez-red papule(s). The patient was informed that angiomas are benign growths on the the skin. No treatment is necessary. Electrodesiccation Diagnosis: Hemangioma Indication: cosmetic Location: Right cheek Consent: The risks of the procedure were discussed with the patient, including, but not limited to risks of scarring, incomplete removal and recurrence. Verbal consent was obtained from the patient. Method: The lesion was removed by electrodesiccation at a low power setting Post-procedure: Petroleum ointment was applied to the treated area. Post-procedure instructions were reviewed with the patient. 60$ cosmetic fee for right cheek 10. History of atypical nevus 11. Family history of malignant melanoma Next Visit: 1 year documented in this encounter [facility] 07-26-2024 History of Presen t illness Narrative Reason for Appointment: Patient ID: Rosa Robb is a 48 y.o. female who presents for Weight Management (Pt present today for Adipex #1 visit.) Patient presents today for a weight management consultation. Patient desires to initiate Adipex. Initial Vitals for Adipex prescription #1: Estimated body mass index is 30.18 kg/m as calculated from the following: Height as of 03/02/24: 5' 2 . Weight as of this encounter: 165 lb. Allergies as of 07/26/2024 - Reviewed 07/26/2024 Allergen Reaction Noted Prochlorperazine Rash 05/09/2023 Past Medical History: Diagnosis Date Hypothyroidism (CMS/HCC) 08/04/2023 Insomnia No past surgical history on file. Review of Systems: Review of Systems Constitutional: Negative. HENT: Negative. Eyes: Negative. Respiratory: Negative. Cardiovascular: Negative. Gastrointestinal: Negative. Genitourinary: Negative. Musculoskeletal: Negative. Skin: Negative. Neurological: Negative. All other systems reviewed and are negative. Hematological: Negative. Endocrine: Negative. Allergic/Immunologic: Negative. Objective Physical Exam Constitutional: Appearance: Normal appearance. She is normal weight. HENT: Head: Normocephalic. Cardiovascular: Rate and Rhythm: Normal rate. Pulses: Normal pulses. Pulmonary: Effort: Pulmonary effort is normal. Breath sounds: Normal breath sounds. Abdominal: Palpations: Abdomen is soft. Musculoskeletal: General: Normal range of motion. Neurological: General: No focal deficit present. Mental Status: She is alert and oriented to person, place, and time. Psychiatric: Mood and Affect: Mood normal. Behavior: Behavior normal. Thought Content: Thought content normal. Judgment: Judgment normal. Vitals and nursing note reviewed. Assessment/Plan Encounter Diagnoses Name Primary? Weight gain Encounter for weight management Adipex: Patient presents today for initial Adipex prescription. I have discussed in detail the importance of keeping a food journal, proper nutrition/diet, and exercise regimen while taking Adipex. Patient verbalized understanding and signed consents to initiate (Adipex) medication therapy. Patient was given a printed prescription signed by provider to take to their local pharmacy. Follow Up: Patient is to return to the office in 3 month for further evaluation to assess patient progress. Weight and blood pressure will need to be captured in order for patient to receive 4th prescription. Pt was given a 90 day supply at this visit. Documented by: Zoie Pelaez MA on behalf of KRANTHI Sharma documented in this encounter [facility] 03-02-2024 History of Presen t illness Narrative Associated Problem(s): Other supraventricular tachycardia (CMS/HCC) No current symptoms Associated Problem(s): Encounter for wellness examination in adult Reviewed Ht/Wt/BMI Recommend eye exam yearly Recommend dental exams twice a year Balance work/leisure activities Exercises is recommended most days of the week (appropriate as chronic conditions allow) Follow up yearly and prn Associated Problem(s): Hypothyroidism (CMS/HCC) Will increase dose of thyroid med to 88mcg Recheck labs in 6 weeks Images from the original note were not included. Rosa Robb is a 48 y.o. female presents with chief complaint of No chief complaint on file. HPI: Here for a wellness appt Overall is doing fairly well. Had recent labs, and is taking meds for thyroid. She is feeling sluggish from time to time Is up to date with her wellness categories. She is having some new stressors d/t finding out that her department at the [employer] is closing, so she will be looking for a new job. SUBJECTIVE: MEDICATIONS: Current Outpatient Medications Medication Instructions fluocinonide (Lidex) 0.05 % external solution Apply to affected areas on the scalp, up to twice a day when flared, 30 day supply Levonorgestrel (Mirena, 52 MG,) 20 MCG/DAY intrauterine device Intrauterine levothyroxine (SYNTHROID) 88 mcg, Oral, Daily before breakfast traZODone (DESYREL) 50 mg, Oral, Nightly ALLERGIES: Allergies Allergen Reactions Prochlorperazine Rash Compazine REVIEW OF SYMPTOMS: Review of Systems Constitutional: Negative for appetite change, chills and fever. HENT: Negative for congestion, ear pain and sore throat. Eyes: Negative for pain, discharge, redness and visual disturbance. Respiratory: Negative for cough, shortness of breath and wheezing. Cardiovascular: Negative for chest pain, palpitations and leg swelling. Gastrointestinal: Negative for abdominal pain, blood in stool, constipation, diarrhea, nausea and vomiting. Genitourinary: Negative for difficulty urinating, dysuria and frequency. Musculoskeletal: Negative for arthralgias, back pain, joint swelling and myalgias. Skin: Negative for rash and wound. Neurological: Negative for dizziness, tremors, seizures, syncope and headaches. Psychiatric/Behavioral: Negative for behavioral problems, self-injury and suicidal ideas. The patient is not nervous/anxious. Hematological: Does not bruise/bleed easily. Endocrine: Negative for polydipsia, polyphagia and polyuria. Allergic/Immunologic: Negative for environmental allergies and food allergies. PAST MEDICAL HISTORY Past Medical History: Diagnosis Date Hypothyroidism (CMS/HCC) 08/04/2023 Insomnia History reviewed. No pertinent surgical history. family history includes Melanoma in her mother. OBJECTIVE: Visit Vitals BP 128/82 (BP Location: Left arm, Patient Position: Sitting, BP Cuff Size: Adult long) Pulse 77 Temp 97.8 F (Temporal) Resp 18 Ht 5' 2 Wt 157 lb 3.2 oz SpO2 96% BMI 28.75 kg/m Smoking Status Never BSA 1.77 m Physical Exam Vitals and nursing note reviewed. Constitutional: General: She is not in acute distress. Appearance: Normal appearance. HENT: Head: Normocephalic and atraumatic. Right Ear: Tympanic membrane, ear canal and external ear normal. Left Ear: Tympanic membrane, ear canal and external ear normal. Nose: Nose normal. Mouth/Throat: Mouth: Mucous membranes are moist. Eyes: Extraocular Movements: Extraocular movements intact. Conjunctiva/sclera: Conjunctivae normal. Cardiovascular: Rate and Rhythm: Normal rate and regular rhythm. Pulses: Normal pulses. Heart sounds: Normal heart sounds. Pulmonary: Effort: Pulmonary effort is normal. Breath sounds: Normal breath sounds. Abdominal: General: Bowel sounds are normal. There is no distension. Palpations: Abdomen is soft. There is no mass. Tenderness: There is no abdominal tenderness. Musculoskeletal: General: Normal range of motion. Cervical back: Normal range of motion and neck supple. Right lower leg: No edema. Left lower leg: No edema. Lymphadenopathy: Cervical: No cervical adenopathy. Skin: General: Skin is warm and dry. Capillary Refill: Capillary refill takes 2 to 3 seconds. Findings: No rash. Neurological: General: No focal deficit present. Mental Status: She is alert and oriented to person, place, and time. Psychiatric: Mood and Affect: Mood normal. Behavior: Behavior normal. Thought Content: Thought content normal. Judgment: Judgment normal. ASSESSMENT AND PLAN: No follow-ups on file. Problem List Items Addressed This Visit Hypothyroidism (CMS/HCC) Will increase dose of thyroid med to 88mcg Recheck labs in 6 weeks Relevant Medications levothyroxine (Synthroid) 88 MCG tablet Other supraventricular tachycardia (CMS/HCC) No current symptoms Encounter for wellness examination in adult - Primary Reviewed Ht/Wt/BMI Recommend eye exam yearly Recommend dental exams twice a year Balance work/leisure activities Exercises is recommended most days of the week (appropriate as chronic conditions allow) Follow up yearly and prn Insomnia, unspecified Relevant Medications traZODone (Desyrel) 50 MG tablet Other Visit Diagnoses Insomnia Relevant Medications traZODone (Desyrel) 50 MG tablet documented in this encounter [facility] 07-31-2023 History of Presen t illness Narrative [...] Examined Right arm Examined Patient wearing nail malay, Denies dark streaks on toenails Left arm [...] Back, Right Lower Back, Right Upper Back [place] and brown stuck on verrucous scaly papule [...] limited to risks of scarring, darker or digital marketing specialist pigmentary changes, recurrence, incomplete removal and infection. [...] year skin exam documented in this encounter [facility] 01-18-2022 Note OPERATIVE NOTE OPERATION DATE: 01/18/2022 PROCEDURE: Removal of IUD as well as placement of Mirena IUD. PREOPERATIVE DIAGNOSIS: Retained IUD. POSTOPERATIVE DIAGNOSIS: Retained IUD. ANESTHESIA: General. SURGEON: Chun Guo D.O. LEASE BROKER: None. BLOOD LOSS: 5 mL. URINE OUTPUT: [...] to recovery room in stable condition. [facility] Evaluation note Diagnosis Melanocytic nevus of trunk- Primary Benign neoplasm of skin of trunk, except scrotum Rash and other nonspecific skin eruption Lentigines Angioma of skin Neoplasm of unspecified behavior of bone, soft tissue, and skin Seborrheic keratosis, inflamed History of nevus excision [facility] Diagnosis Hypothyroidism, unspecified (CMS/HCC) Hypothyroidism (CMS/HCC) Unspecified hypothyroidism [facility] Diagnosis Encounter for wellness examination in adult- Primary Hypothyroidism (CMS/HCC) Unspecified hypothyroidism Insomnia, unspecified Insomnia Insomnia, unspecified [facility] Diagnosis Encounter for wellness examination in adult- Primary Other supraventricular tachycardia (CMS/HCC) Hypothyroidism, unspecified type (CMS/HCC) Insomnia, unspecified Insomnia Insomnia, unspecified [facility] Diagnosis Encounter for wellness examination in adult- Primary Other supraventricular tachycardia (CMS/HCC) Hypothyroidism, unspecified type (CMS/HCC) Insomnia, unspecified Insomnia Insomnia, unspecified Hypothyroidism, unspecified type (CMS/HCC) [facility] Diagnosis Encounter for wellness examination in adult- Primary Other supraventricular tachycardia (CMS/HCC) Hypothyroidism, unspecified type (CMS/HCC) Insomnia, unspecified Insomnia Insomnia, unspecified Weight gain Other symptoms concerning nutrition, metabolism, and development Encounter for weight management [facility] Diagnosis Encounter for wellness examination in adult- Primary Other supraventricular tachycardia (CMS/HCC) Hypothyroidism, unspecified type (CMS/HCC) Insomnia, unspecified Insomnia Insomnia, unspecified Other rosacea Melanocytic nevus of trunk Benign neoplasm of skin of trunk, except scrotum Lentigines Seborrheic keratosis Other seborrheic dermatitis Actinic keratosis Seborrheic keratosis, inflamed Patient-requested procedure Capillary angioma Nevus, non-neoplastic History of atypical nevus Family history of malignant melanoma [facility] Diagnosis Encounter for wellness examination in adult- Primary Other supraventricular tachycardia (CMS/HCC) Hypothyroidism, unspecified type (CMS/HCC) Insomnia, unspecified Insomnia Insomnia, unspecified Hypothyroidism, unspecified type (CMS/HCC)- Primary Other supraventricular tachycardia (CMS/HCC) Primary insomnia Persistent disorder of initiating or maintaining sleep Overweight (BMI 25.0-29.9) Overweight documented in this encounter [facility] Summary Purpose Family History No Family History Records FoundNo Family History Records FoundNo Family History Records Found Advance Directives No Advanced Directives Records FoundNo Advanced Directives Records FoundNo Advanced Directives Records Found Additional Source Comments INFORMATION SOURCE (unrecogn ized section and content) DATE CREATED AUTHOR 12/22/2020 [facility] DATE CREATED AUTHOR AUTHOR'S ORGANIZ ATION 08/25/2022 [facility] DATE CREATED AUTHOR AUTHOR'S ORGANIZ ATION 08/06/2024 [facility] Care Teams (unrecognized sec tion and content) Pill Packer Relationship Specialty Start Date End Date Sravanthi Cole APRN-CHEMICAL PROCESS OPERATOR [address] [place] [address] PCP - [employer] 11/21/22 Pill P[employer] Relationship Specialty Start Date End Date Sravanthi Cole APRN-CHEMICAL PROCESS OPERATOR [address] [place] [address] PCP - [employer] 11/21/22 Pill Packer Relationship Specialty Start Date End Date Sravanthi Cole APRN-CHEMICAL PROCESS OPERATOR [address] [place] [address] PCP - [employer] 11/21/22 Pill Packer Relationship Specialty Start Date End Date Sravanthi Cole TELEPHOTO [facility]SA[facility] [address] [place] [address] PCP - [employer] 10/21/22 Pill Packer Relationship Specialty Start Date End Date [facility]vanthi Cole [facility]NSA[facility] [address] [place] [address] PCP - [employer] 10/21/22 Pill Packer Relationship Specialty Start Date End Date [facility]vanthi Cole [facility] [address] [place] [address] PCP - [employer] 10/21/22 Jun Cárdenas MD [address] [place] [phone] PCP - General Family Medicine 03/02/24 Connie Arceo NP [address] [place] [phone] Nurse Practitioner Family Medicine 03/02/24 Pill Packer Relationship Specialty Start Date End Date Sravanthi Cole TELEPHOTO ENGINEERSAINT MONICA'[facility] HOME [address] [place] [address] PCP - [employer] 10/21/22 Jun Cárdenas MD [address] [place] [address] PCP - General Family Medicine 03/02/24 Connie Arceo NP [address] [place] [address] Nurse Practitioner Family Medicine 03/02/24 Pill Packer Relationship Specialty Start Date End Date AngelessantosSravanthi APRNSA[facility] [address] [place] [address] PCP - [employer] 10/21/22 Jun Cárdenas MD [address] [place] [address] PCP - General Family Medicine 03/02/24 Connie Arceo NP [address] [place] [address] Nurse Practitioner Family Medicine 03/02/24 Pill Packer Relationship Specialty Start Date End Date [facility]vanthi [facility] [address] [place] [address] PCP - [employer] 10/21/22 Jun Cárdenas MD [address] [place] [address] PCP - General Family Medicine 03/02/24 Connie Arceo, ARTHUR [address] [place] [address] Nurse Practitioner Family Medicine 03/02/24 Pill Packer Relationship Specialty Start Date End Date [facility] [address] [place] [address] PCP - [employer] 10/21/22 Jun Cárdenas MD [address] [place] [address] PCP - General Family Medicine 03/02/24 Connie Arceo NP [address] [place] [address] Nurse Practitioner Family Medicine 03/02/24 Pill Packer Relationship Specialty Start Date End Date Sravanthi Cole, TELEPHOTO ENGINEER-CHEMICAL PROCESS OPERATOR [address] [place] [address] PCP - [employer] 10/21/22 Jun Cárdenas MD [address] [place] [address] PCP - General Family Medicine 03/02/24 Connie Arceo NP [address] [place] [address] Nurse Practitioner Family Medicine 03/02/24 Pill Packer Relationship Specialty Start Date End Date Sravanthi Cole, TELEPHOTO ENGINEER-CHEMICAL PROCESS OPERATOR [address] [place] [address] PCP - [employer] 10/21/22 Jun Cárdenas MD [address] [place] [address] PCP - General Family Medicine 03/02/24 Connie Arceo NP [address] [place] [address] Nurse Practitioner Family Medicine 03/02/24 Pill Packer Relationship Specialty Start Date End Date Sravanthi Cole, TELEPHOTO ENGINEER-CHEMICAL PROCESS OPERATOR [address] [place] [address] PCP - [facility] 10/21/22 Jun Cárdenas MD [address] [place] [address] PCP - General Family Medicine 03/02/24 Connie Arceo NP [address] [place] [address] Nurse Practitioner Family Medicine 03/02/24 Reason for Visit (unrecogniz ed section and content) Reason Comments Skin Check Suspicious Skin Lesion Reason Comments Med Refill Reason Comments Weight Management Pt present today for Adipex #1 visit. FOR RECORDS PERTAINING TO PATIENTS WHO ARE [...] BE BASED ON THE PRIMARY CLINICAL RECORDS. [email or web address] provides no warranty or guarantee of the accuracy or completeness of information in this document.
[2024-09-16 12:41] LABS: Thyroid Stimulating Hormone 0.655 uIU/mL (0.358-3.740)
[2024-09-16 13:58] LABS: Free T4 1.17 ng/dL (0.76-1.46)
== END 2024-09-16 09:46 | disposition home or self-care (01) ==
LOC: LAB 09:49
PROVIDERS: PCP Nurse Practitioner; Visit Provider Nurse Practitioner
DX: E03.9 Hypothyroidism, unspecified (principal)
CPT/HCPCS: 36415; 84436; 84439; 84443

== ENCOUNTER 2024-12-22 15:07 | Outpatient (REF) | payer BC, SELFPAY ==
[2024-12-27 16:08] LABS: Age Gdln ACOG Testing Note (.); IGP, Aptima HPV, rfx 16/18,45 Note (.)
== END 2024-12-22 15:08 | disposition home or self-care (01) ==
LOC: LAB 15:07
PROVIDERS: PCP Nurse Practitioner; Visit Provider Physician Assistant
DX: Z01.419 Encounter for gynecological examination (general) (routine) without abnormal findings (principal)
CPT/HCPCS: 87624; 88175

== ENCOUNTER 2024-12-28 08:24 | Outpatient (OUT) | payer BC, SELFPAY ==
--- OUTSIDE RECORDS SUMMARY | 2024-12-22 08:36 | XMS_ITS ---
Author Name Auto Generated Organization [facility] Care Team Providers Care Medical Device Sales Consultant Name Role Phone GARTH LEÓN Attending Unavailable SHANNAN MORA Attending Unavailable RON TALBERT Attending Unavailable RON TALBERT Attending Unavailable GARTH LEÓN Attending Unavailable PROBLEMS No Problem Records Found PROCEDURES No Procedure Records Found RESULTS No Result Records Found ALLERGIES No Allergies Records Found ENCOUNTERS ADMIT/DISCHARGE ACCOUNT NUMBER ADMITTING ENCOUNTER CLASS LOCATION SOURCE 12/22/2024/ 5 [id number] Ambulatory Building:[facility] 08/04/2024/ 5 [id number] Ambulatory Building:[facility] 08/02/2024/ 5 [id number] Ambulatory Building:[facility] 07/26/2024/ 5 [id number] Ambulatory Building:[facility] 03/02/2024/ 4 [id number] Ambulatory Building:[facility] PAYERS ENCOUNTER GUARANTOR PAYER SUBSCRIBER SOURCE 12/22/2024 NATHANIEL GONZALESDOB: [facility] [place] [address]Wew: (HP) (WP) Primary Insurance:BCBSPo licy Number: [id number] ctive Date:2022-06-23 NATHANIEL LISETTEJOSEB: [id number] [place] [address] [facility] 08/04/2024 NATHANIEL LISETTEJOSEB: [place] [address]Tyh: (HP) (WP) Primary Insurance:BCBSPo licy Number: [id number] ctive Date:2022-06-23 NATHANIEL LISETTEJOSEB: [id number] [place] [address] [facility] 08/02/2024 NATHANIEL LISETTEJOSEB: [place] [address]Foy: (HP) (WP) Primary Insurance:BCBSPo licy Number: [id number] ctive Date:2022-06-23 NATHANIEL LISETTEJOSEB: [id number] [place] [address] [facility] 07/26/2024 NATHANIEL LISETTEJOSEB: [place] [address]Ccu: (HP) (WP) Primary Insurance:BCBSPo licy Number: [id number] ctive Date:2022-06-23 NATHANIEL LISETTEJOSEB: [id number] [place] [address] [facility] 03/02/2024 NATHANIEL EBERLYDOB: [place] [address]Jyb: (HP) (WP) Primary Insurance:[employer] licy Number: [id number] ctive Date:2022-06-23 NATHANIEL SALESB: [id number] [place] [address] [facility] EP[facility]
[2024-12-28 10:31] LABS: Free T3 2.22 pg/mL (2.18-3.98); Glucose 93 mg/dL (74-106); Thyroid Stimulating Hormone 1.216 uIU/mL (0.358-3.740)
[2024-12-28 10:41] LABS: Ferritin 52.0 ng/mL (8.0-252.0)
[2024-12-29 04:08] LABS: Sex Horm Binding Glob, Serum 37.8 nmol/L (24.6-122.0)
[2024-12-30 13:08] LABS: Calcitriol(1,25 di-OH Vit D) 36.4 pg/mL (24.8-81.5)
[2025-01-01 12:08] LABS: Reverse T3, Serum 23.4 ng/dL (9.2-24.1)
[2025-01-01 21:08] LABS: Serotonin, Serum 178 ng/mL (31-207)
== END 2024-12-28 08:25 | disposition home or self-care (01) ==
LOC: LAB 08:30
PROVIDERS: PCP Nurse Practitioner; Visit Provider Physician Assistant
DX: E34.9 Endocrine disorder, unspecified (principal)
CPT/HCPCS: 36415; 82530; 82627; 82652; 82670; 82679; 82728; 82947; 83036; 83525; 84144; 84260; 84270; 84402; 84403; 84432; 84436; 84439; 84443; 84481; 84482; 84681; 86376; 86800